=== PATIENT | male | born 1955 | race African-American/Black ===

== ENCOUNTER 2019-01-16 10:59 | Emergency (ER) | payer MEDICAID ==
[~2019-01-16] VITALS: Ht 167.6 cm; Wt 77.3 kg
[~2019-01-16 10:59] MED LIST: ALLEGRA ALLERG180 MG PO; ASCORBIC ACID500 MG PO; CALCIUM 600+D T1 TA1 PO; CELEXA10 MG PO; DEPAKOTE500 MG PO; DILANTIN100 MG PO; INVANZ 1 GM/NS 11 G1 IV; K-DUR20 MEQ PO; MELATONIN 3 MG1 TAB PO; MULTI-DAY VITAM1 TAB PO; NORCO 5/325 TAB1 TA1 PO; PRAVACHOL20 MG PO; VANCOMYCIN 750750 MG IV; VENTOLIN HFA18 GM INH; VITAMIN D2000 UNIT PO
[2019-01-16 11:01] VITALS: Ht 167.6 cm; Wt 77.3 kg
[2019-01-16 14:08] LABS: BASOPHILS 0.1 % (0-2); EOSINOPHILS 0.9 % (0-7); HEMATOCRIT 40.7 % (42.0-54.0); HEMOGLOBIN 13.3 g/dL (13.5-17.5); IMMATURE GRANULOCYTES 0.1 % (0-5); LYMPHOCYTES 44.7 % (15-50); MCHC 32.7 g/dL (31.0-37.0); MCV 104.1 fL (80.0-100.0); MEAN PLATELET VOLUME 10.6 fL (7.4-10.4); MONOCYTES 16.6 % (2-11); NEUTROPHILS 37.6 % (40-80); RBC 3.91 10x6/uL (4.20-6.10); RDW 14.2 % (11.5-14.5); WBC 7.9 10x3/uL (4.8-10.8)
[2019-01-16 14:19] LABS: PLATELET COUNT 228 10x3/uL (130-400)
[2019-01-16 14:31] LABS: ALBUMIN 2.7 g/dL (3.4-5.0); ALKALINE PHOSPHATASE 89 U/L (46-116); ALT (SGPT) 25 U/L (10-68); BILIRUBIN - TOTAL 0.18 mg/dL (0.2-1.3); CALC OSMOLALITY 279 mosm/kg (275-300); CALCIUM 8.8 mg/dL (8.5-10.1); CARBON DIOXIDE 32.1 mmol/L (21.0-32.0); CHLORIDE - SERUM 105 mmol/L (98-107); CREATININE - SERUM 1.5 mg/dL (0.6-1.3); GLUCOSE 83 mg/dL (74-106); POTASSIUM - SERUM 4.7 mmol/L (3.5-5.1); PROTEIN - SERUM 8.6 g/dL (6.4-8.2); SODIUM 140 mmol/L (136-145); UREA NITROGEN 19 mg/dL (7-18); eGFR NON AFRICAN AMERICAN 51 mL/min (90-120)
[2019-01-16 14:41] LABS: LIPASE 302 U/L (73-393); MAGNESIUM - SERUM 2.1 mg/dL (1.8-2.4); THYROID STIMULATING HORMONE 5.31 uIU/mL (0.36-3.74); TROPONIN-I < 0.017 ng/mL (0.000-0.060)
[2019-01-16 15:07] LABS: APPEARANCE TURBID (CLEAR); BILIRUBIN NEGATIVE (NEGATIVE); COLOR YELLOW (YELLOW); GLUCOSE NEGATIVE (NEGATIVE); KETONE NEGATIVE (NEGATIVE); NITRITE NEGATIVE (NEGATIVE); PROTEIN NEGATIVE (NEGATIVE); SPECIFIC GRAVITY 1.005 (1.005-1.020); UROBILINOGEN NORMAL (NORMAL)
[2019-01-16 15:09] LABS: BACTERIA MANY /hpf (NONE SEEN); RED CELLS - URINE OCC /hpf (0-5); WHITE CELLS - URINE 0-5 /hpf (0-5)
[2019-01-16 17:02] VITALS: BP 120/70
== END 2019-01-16 17:04 ==
LOC: D.ER 10:59
PROVIDERS: Family Medicine
DX: Z86.73 Personal history of transient ischemic attack (TIA), and cerebral infarction without residual deficits (principal); R45.4 Irritability and anger; Z93.3 Colostomy status; Q05.9 Spina bifida, unspecified

== ENCOUNTER 2019-03-30 08:24 | Emergency (ER) | payer MEDICAID ==
[~2019-03-30] VITALS: Ht 167.6 cm; Wt 95.5 kg
[2019-03-30 08:39] VITALS: Ht 167.6 cm; Wt 95.5 kg
[2019-03-30 09:25] LABS: BASOPHILS 0.1 % (0-2); EOSINOPHILS 1.5 % (0-7); HEMATOCRIT 41.1 % (42.0-54.0); HEMOGLOBIN 13.4 g/dL (13.5-17.5); IMMATURE GRANULOCYTES 0.6 % (0-5); LYMPHOCYTES 30.3 % (15-50); MCH 33.8 pg (26.0-34.0); MCHC 32.6 g/dL (31.0-37.0); MCV 103.8 fL (80.0-100.0); MEAN PLATELET VOLUME 10.6 fL (7.4-10.4); MONOCYTES 12.6 % (2-11); NEUTROPHILS 54.9 % (40-80); PLATELET COUNT 271 10x3/uL (130-400); RBC 3.96 10x6/uL (4.20-6.10); RDW 15.1 % (11.5-14.5); WBC 9.1 10x3/uL (4.8-10.8)
[2019-03-30 09:33] LABS: APTT 36.5 SECONDS (22.8-39.4); INR 0.97 (0.85-1.17); PROTIME 12.4 SECONDS (11.6-15.0)
[2019-03-30 10:43] LABS: ALBUMIN 2.7 g/dL (3.4-5.0); ALKALINE PHOSPHATASE 60 U/L (46-116); ALT (SGPT) 17 U/L (10-68); BILIRUBIN - TOTAL 0.37 mg/dL (0.2-1.3); CALC OSMOLALITY 280 mosm/kg (275-300); CALCIUM 8.2 mg/dL (8.5-10.1); CARBON DIOXIDE 30.5 mmol/L (21.0-32.0); CHLORIDE - SERUM 103 mmol/L (98-107); CREATININE - SERUM 1.4 mg/dL (0.6-1.3); GLUCOSE 94 mg/dL (74-106); PROTEIN - SERUM 8.6 g/dL (6.4-8.2); SODIUM 140 mmol/L (136-145); UREA NITROGEN 18 mg/dL (7-18); eGFR NON AFRICAN AMERICAN 55 mL/min (90-120)
[2019-03-30 10:44] LABS: POTASSIUM - SERUM 4.9 mmol/L (3.5-5.1)
[2019-03-30 10:55] LABS: CKMB 1.6 U/L (0.0-3.6); CREATINE KINASE 292 UL (21-232); TROPONIN-I < 0.017 ng/mL (0.000-0.060)
[2019-03-30 11:18] LABS: APPEARANCE CLEAR (CLEAR); BILIRUBIN NEGATIVE (NEGATIVE); COLOR STRAW (YELLOW); GLUCOSE NEGATIVE (NEGATIVE); KETONE NEGATIVE (NEGATIVE); NITRITE POSITIVE (NEGATIVE); PROTEIN NEGATIVE (NEGATIVE); UROBILINOGEN NORMAL (NORMAL)
[2019-03-30 11:20] LABS: BACTERIA FEW /hpf (NEGATIVE); EPITHELIAL CELLS NSEEN /hpf (0-5); RED CELLS - URINE NONE SEEN /hpf (0-5); WHITE CELLS - URINE 0-5 /hpf (NEGATIVE)
[2019-03-30] MEDS ORDERED: KEFLEX500 MG PO (12:03)
[2019-03-30] MEDS ORDERED: MACROBID100 MG PO (12:03)
[2019-03-30 15:26] VITALS: BP 119/80
== END 2019-03-30 15:28 | disposition home or self-care (01) ==
LOC: D.ER 08:24
PROVIDERS: Family Medicine
DX: M54.5 Low back pain (principal); N39.0 Urinary tract infection, site not specified

== ENCOUNTER 2020-01-06 08:57 | Inpatient (IN) | payer MEDICAID ==
[~2020-01-06] VITALS: Ht 167.6 cm; Wt 82.9 kg
[2020-01-06] VITALS (52 sets, daily range): BP systolic 75–141; BP diastolic 36–97
--- NOTE | ~2020-01-06 | OP ---
PATIENT NAME: CHITO MARINELLI MEDICAL RECORD: [id number] :59 LOCATION:D.M2 D.2103 ADMISSION DATE:01/06/20 SURGEON: CARLOS CHESTER MD DATE OF OPERATION: 01/18/2020 SURGEON: Carlos Chester MD ANESTHESIA: MAC by Chandrakant Randhawa CRNA FINDINGS: 1. Retained left ureteral stent within an ileal conduit. 2. Heavily calcified stent with stone formation on the distal coil. PROCEDURE: Cystoscopy into an ileal conduit, removal of left ureteral stent, dilation of stomal stenosis. SPECIMENS: Left ureteral stent. OPERATIVE DIAGNOSES: 1. Retained left ureteral stent with left pyelonephritis and renal atrophy. 2. Spina bifida with previous ileal conduit urinary diversion. ESTIMATED BLOOD LOSS: None. CLINICAL HISTORY: This is a 64-year-old male, who is nonverbal. He has spina bifida. He has had a previous ileal conduit and urinary diversion. A left ureteral stent has been placed with the duration of stenting being unknown. He comes in with sepsis and he has gram-positive bacteria in his blood stream on culture. He comes to have this retained foreign body, which is undoubtedly infected, removed. He is already on antibiotics on the floor. No further antibiotics were given here. DESCRIPTION OF PROCEDURE: The patient was placed on the OR table in supine position. He was given IV sedation. Fluoroscopy revealed the course of the stent with a large coil, which is calcified within the ileal conduit itself and the stent migrating across the body to the left side where it coiled up in the left renal pelvis. The stoma appliance was removed and the patient was prepped and draped. There is quite significant stomal stenosis. I used a finger in the stoma and gently dilated the skin overlying the stoma to open up the stoma. I was unable to place a 21-Barbadian cystoscope with 30-degree lens for vision. I was able to find the distal end of the stent, which was heavily calcified with stone material on it. Rigid grasping forceps was then used to grasp the relatively clear part of the stent proximal to the stone. The stent was then removed entirely. A new stoma appliance was placed on the patient. The stent was sent to pathology for identification. TRANSINT:[id number] Voice Confirmation ID: [id number] DOCUMENT ID: [id number] OPERATIVE REPORT [id number] CHITO MARINELLI CARLOS CHESTER MD CC: [id number] DICTATION DATE: 01/18/20 1706 LAUNDRY SUPERVISOR: 01/19/20 0239 ADM IN [facility] [address] [id number]
[~2020-01-06 08:57] MED LIST changes: +KEFLEX500 MG PO; +MACROBID100 MG PO
[2020-01-06 09:37] LABS: HEMATOCRIT 32.1 % (42.0-54.0); HEMOGLOBIN 10.1 g/dL (13.5-17.5); LYMPHOCYTES 10.8 % (15-50); MCH 30.4 pg (26.0-34.0); MCHC 31.5 g/dL (31.0-37.0); MCV 96.7 fL (80.0-100.0); MEAN PLATELET VOLUME 9.4 fL (7.4-10.4); PLATELET COUNT 280 10x3/uL (130-400); RBC 3.32 10x6/uL (4.20-6.10); RDW 15.7 % (11.5-14.5); WBC 13.3 10x3/uL (4.8-10.8)
[2020-01-06 09:53] LABS: CALC OSMOLALITY 276 mosm/kg (275-300); CALCIUM 8.6 mg/dL (8.5-10.1); CARBON DIOXIDE 18.7 mmol/L (21.0-32.0); CHLORIDE - SERUM 100 mmol/L (98-107); CREATININE - SERUM 4.2 mg/dL (0.6-1.3); GLUCOSE 119 mg/dL (74-106); INR 1.34 (0.85-1.17); POTASSIUM - SERUM 5.1 mmol/L (3.5-5.1); PROTIME 16.5 SECONDS (11.6-15.0); SODIUM 134 mmol/L (136-145); UREA NITROGEN 34 mg/dL (7-18); eGFR NON AFRICAN AMERICAN 15 mL/min (90-120)
[2020-01-06 09:54] LABS: APTT 52.1 SECONDS (22.8-39.4)
[2020-01-06 10:10] LABS: ALBUMIN 1.6 g/dL (3.4-5.0); ALKALINE PHOSPHATASE 75 U/L (30-120); ALT (SGPT) 7 U/L (10-68); BILIRUBIN - TOTAL 0.69 mg/dL (0.2-1.3); CKMB 0.2 U/L (0.0-3.6); CREATINE KINASE 113 UL (21-232); PROTEIN - SERUM 9.4 g/dL (6.4-8.2); TROPONIN-I 0.035 ng/mL (0.000-0.060)
--- NOTE | 2020-01-06 10:30 | NUR ---
PT SLEEPING ON BED. TEMP IS DECREASED AT THIS TIME.
--- NOTE | 2020-01-06 12:00 | NUR ---
WILLIS KAM'D AT THIS TIME D/T PT UROSTOMY BEING PRESENT
--- NOTE | 2020-01-06 12:01 | NUR ---
URINE SPECIMEN TAKEN TO LAB
[2020-01-06 12:09] LABS: BILIRUBIN NEGATIVE (NEGATIVE); GLUCOSE NEGATIVE (NEGATIVE); KETONE NEGATIVE (NEGATIVE); NITRITE POSITIVE (NEGATIVE); UROBILINOGEN NORMAL (NORMAL)
[2020-01-06 12:16] LABS: BACTERIA MANY /hpf (NEGATIVE); EPITHELIAL CELLS 0-5 /hpf (0-5); RED CELLS - URINE 0-5 /hpf (0-5)
[2020-01-06] MEDS ORDERED: LIPITOR10 MG PO (13:24)
[2020-01-06] MEDS ORDERED: CYMBALTA30 MG PO ×2 (13:24→13:25)
[2020-01-06] MEDS ORDERED: DEPAKOTE250 MG PO (13:30)
[2020-01-06] MEDS ORDERED: FISH OIL 1,0001 CA1 PO (13:31)
[2020-01-06] MEDS ORDERED: ELIQUIS5 MG PO (13:31)
[2020-01-06] MEDS ORDERED: GABAPENTIN100 MG PO (13:32)
[2020-01-06] MEDS ORDERED: GUAIFENESI100 MG/5 M PO (13:34)
[2020-01-06] MEDS ORDERED: ADVIL200 MG PO (13:35)
[2020-01-06] MEDS ORDERED: FUROSEMIDE20 MG PO (13:35)
[2020-01-06] MEDS ORDERED: MELATONIN 3 MG1 TAB PO (13:36)
[2020-01-06] MEDS ORDERED: K-TAB10 MEQ PO (13:37)
[2020-01-06] MEDS ORDERED: MULTI-DAY VITAM1 TAB PO (13:37)
--- NOTE | 2020-01-06 13:37 | NUR ---
ATTEMPTED TO CONTACT PTS BROTHER AND SISTER USING EMERGENCY CONTACT NUMBERS FOUND ON HIS PAPERWORK FROM THE ALF, THE NUMBER LISTED FOR HIS SISTER ([phone]) STATED IT WAS A NONFUNCIONING NUMBER, AND THE OTHER NUMBER FOR THE BROTHER ([phone]) HAD AN INDIVIUAL WHO ANSWERED STATED I HAD THE WRONG NUMBER. WAS ABLE TO GET AHOLD OF PTS COUSIN, MITESH REDMOND. UPDATES PROVIDED. CONSENTS RECIEVED FOR CVL PLACEMENT. PTS COUSIN STATED WILL CALL LATER FOR UPDATES AND SHE SAID SHE WILL ATTEMPT TO CONTACT PTS SISTER WHO IS TYPICALLY VERY DIFFICULT TO GET AHOLD OF PER PTS COUSIN. WILL CONTINUE PLAN OF CARE.
[2020-01-06] MEDS ORDERED: PROMOD LIQUID P30 M1 PO (13:38)
[2020-01-06] MEDS ORDERED: OMEPRAZOLE20 M1 PO (13:38)
[2020-01-06] MEDS ORDERED: PROVERA10 MG PO (13:39)
[2020-01-06] MEDS ORDERED: RISPERDAL1 MG PO (13:40)
[2020-01-06] MEDS ORDERED: VITAMIN C500 M1 PO (13:41)
[2020-01-06] MEDS ORDERED: TRAZODONE HCL150 MG PO (13:41)
[2020-01-06] MEDS ORDERED: VITAMIN D1000 UNIT PO (13:42)
--- NOTE | 2020-01-06 13:52 | NUR ---
RECIEVED CALL FROM PTS SISTER, JAUN. UPDATES PROVIDED. EMERGENCY CONTACT INFORMATION UPDATED. VSS. WILL CONTINUE PLAN OF CARE.
[2020-01-06 18:07] LABS: BILIRUBIN - TOTAL 0.25 mg/dL (0.2-1.3); CARBON DIOXIDE 19.4 mmol/L (21.0-32.0)
--- NOTE | 2020-01-06 18:07 | NUR ---
1230 PT RECIEVED FROM THE ED VIA STRECHER. TRANSFERED TO ICU BED.. PT IS OBTUNDED AT THIS TIME.. PIV X 2 RIGHT FOREARM AND LEFT WRIST... 1300 COMPLETE BATH WITH LINEN CHANGE DONE.. THERE IS AN ILLEOSTOMY ON THE RIGHT NEW BAG APPLIED.. URINE IS CLOUDY YELLOW.. THERE IS ACOLOSTOMY BAG ON THE LEFT WITH FAIR YELLOW STOOL IN THE BAG NEW BAG APPLIED AT THIS TIME. . CHG BATH GIVEN AND WHEN PATIENT TURNED TO CHANGE LINENS THERE ARE DRESSINGS ON HIS BUTTOCKS WHEN REMOVED THERE IS A [id number] UNSTAGEABLE DECUD ON HIS RIGHT BUTTOCK AND A 9 X 16 CM DECUBE ON THE LEFT BOTH WITH ESCHCAR AND APPEAR TO BE TUNNELING,, DRESSED WITH MEPLIX DRESSING .. BILATERAL HEELS ARE ALSO EXAMINED AND THERE IS DRY ROUGH SKIN WITH DEEP FISSURES.. THERE IS ALSO A SPINA BIFFADA CREASE IN LOW BACK WITH VERY DEEP FISSURE MOIST.. .. A SMELL IS EMITTING FROM ALL AREAS.. A CULTURE IS OBTSAINED OF AREAS BEFORE REDRESSING THEM... 1345 DR HICKS IN TO SEE PATIENT UPDATE IS GIVEN.. 1420 DR GUAN IN TO SEE PATIENT AND CVL PLACED
--- NOTE | 2020-01-06 18:18 | NUR ---
1500 CXR DONE FOR LINE PLACEMENT.. LEVOPHED INTIATED FOR BP.. DR GUAN EXAMINED PTS BUTTOCKS PER CONSULT RECIEVED FROM DR HICKS,, 1515 LAB DRAWN.. 1600 CONTINUE TO TITRATE LEVPHED FOR BP,, 1620 DR GREEN IN TO SEE PATIENT.. UPDATE GIVEN.. [address]SP[address] VIA BED [facility] EDUCATOR AND NURSE [address] 1800 WITHOUT CHANGES..CONTINUE WITH LEVOPHED DRIP AT 8 MCG ...
[2020-01-06 18:25] LABS: ALBUMIN 1.4 g/dL (3.4-5.0); CALCIUM 7.6 mg/dL (8.5-10.1)
[2020-01-06 18:26] LABS: ANION GAP 19.5 mmol/L (8-16); POTASSIUM - SERUM 3.9 mmol/L (3.5-5.1)
[2020-01-07] VITALS (33 sets, daily range): BP systolic 80–133; BP diastolic 54–96; Ht 167.6 cm; Wt 82.9 kg
[2020-01-07 00:16] LABS: ALBUMIN 1.5 g/dL (3.4-5.0); BILIRUBIN - TOTAL 0.33 mg/dL (0.2-1.3); CALCIUM 7.9 mg/dL (8.5-10.1); CREATININE - SERUM 2.4 mg/dL (0.6-1.3); PROTEIN - SERUM 7.4 g/dL (6.4-8.2)
[2020-01-07 00:19] LABS: ANION GAP 16.8 mmol/L (8-16); CARBON DIOXIDE 24.7 mmol/L (21.0-32.0); POTASSIUM - SERUM 4.5 mmol/L (3.5-5.1)
[2020-01-07 03:49] LABS: HEMATOCRIT 26.4 % (42.0-54.0); HEMOGLOBIN 8.5 g/dL (13.5-17.5); LYMPHOCYTES 13.7 % (15-50); MCH 31.4 pg (26.0-34.0); MCHC 32.2 g/dL (31.0-37.0); MCV 97.4 fL (80.0-100.0); MEAN PLATELET VOLUME 9.1 fL (7.4-10.4); NEUTROPHILS 67.3 % (40-80); PLATELET COUNT 164 10x3/uL (130-400); RBC 2.71 10x6/uL (4.20-6.10); RDW 15.4 % (11.5-14.5); WBC 11.8 10x3/uL (4.8-10.8)
[2020-01-07 04:18] LABS: BILIRUBIN - TOTAL 0.39 mg/dL (0.2-1.3); CALCIUM 8.1 mg/dL (8.5-10.1); CARBON DIOXIDE 29.9 mmol/L (21.0-32.0); CREATININE - SERUM 2.1 mg/dL (0.6-1.3); MAGNESIUM - SERUM 1.7 mg/dL (1.8-2.4); PHOSPHOROUS 4.5 mg/dL (2.5-4.9); PRE-ALBUMIN 9.3 mg/dL (18.0-35.7); PROTEIN - SERUM 7.4 g/dL (6.4-8.2); VANCOMYCIN - RANDOM 11.5 ug/mL (10.0-20.0)
[2020-01-07 04:19] LABS: ALBUMIN 2.1 g/dL (3.4-5.0); ANION GAP 11.4 mmol/L (8-16); POTASSIUM - SERUM 3.3 mmol/L (3.5-5.1)
--- NOTE | 2020-01-07 08:19 | NUR ---
BICARB DRIP D/C'D PER PHYSICIAN'S ORDER.
--- NOTE | 2020-01-07 08:45 | NUR ---
O2 DECREASED TO 2 L/M PER RT. ORAL CARE PERFORMED. PERIPHERAL IV SITED SALINE LOCKED. ALL FLUIDS TO RIGHT IJ CVL.
--- NOTE | 2020-01-07 10:40 | NUR ---
DROPLET ISOLATION INITIATED PER LAB REPORT GRAM POSITIVE CLUSTERS IN BLOOD CULTURE. SPUTUM PENDING. LR AT 100 ML/HR
--- NOTE | 2020-01-07 16:30 | NUR ---
CHG BATH GIVEN. ILEOSTOMY LEAKING. REINFORCED WITH TAPE. SACRAL/BUTTOCK WOUND DRESSINGS CHANGED. CLEANSED WITH WOUND WASH, 4X4 AND TAPE APPLIED. DRAINING BROWN FOUL SMELLING FLUID. ORAL CARE DONE.
--- NOTE | 2020-01-07 17:10 | NUR ---
DR JAMES HERE. SISTER CONTACTED FOR CONSENT FOR EXICISIONAL DEBRIDEMENT OF SACRAL WOUNDS. WITNESSED BY Kristi HAIR RN. LEVOPHED WEANED OFF AT 1630. BP STABLE.
--- NOTE | 2020-01-07 17:25 | NUR ---
TO OR VIA BED. LR AT 100 ML/HR CONTINUES. PATIENT IS ALERT AND AWARE OF SURGICAL PROCEDURE.
--- NOTE | 2020-01-07 18:50 | NUR ---
BACK TO ROOM FROM OR VIA BED. AWAKE AND RESPONSIVE. O2 VIA SIMPLE MASK AT 6L/M. LR RESUMED AT 100ML/HR VIA RIGHT IJ CVL. VITAL SIGNS STABLE. TEMP 97.4. C/O FEELING COLD. WARM BLANKET APPLIES. ILEOSTOMY AND COLOSTOMY INTACT. WOUND VAC TO BILATERAL SACRAL WOUNDS. COVID TEST NEG.
[2020-01-08] VITALS (7 sets, daily range): BP systolic 92–114; BP diastolic 52–71
--- NOTE | 2020-01-08 07:30 | NUR ---
REPORT RECIEVED, SHIFT ASSESSMENT COMPLETE, PT IS CONFUSED LYING IN BED, ON 3L NC WITH 100% FIO2, ALL PPP, VSS, CALL LIGHT IN REACH
[2020-01-08 07:56] LABS: ALBUMIN 2.2 g/dL (3.4-5.0); ANION GAP 8.8 mmol/L (8-16); BILIRUBIN - TOTAL 0.43 mg/dL (0.2-1.3); CALCIUM 7.7 mg/dL (8.5-10.1); CARBON DIOXIDE 31.7 mmol/L (21.0-32.0); CREATININE - SERUM 1.1 mg/dL (0.6-1.3); POTASSIUM - SERUM 3.5 mmol/L (3.5-5.1); PROTEIN - SERUM 6.5 g/dL (6.4-8.2)
[2020-01-08 08:07] LABS: HEMATOCRIT 26.1 % (42.0-54.0); LYMPHOCYTES 18.7 % (15-50); MCH 30.5 pg (26.0-34.0); MCHC 30.7 g/dL (31.0-37.0); MCV 99.6 fL (80.0-100.0); MEAN PLATELET VOLUME 9.5 fL (7.4-10.4); NEUTROPHILS 68.7 % (40-80); PLATELET COUNT 139 10x3/uL (130-400); RBC 2.62 10x6/uL (4.20-6.10); RDW 15.6 % (11.5-14.5)
--- NOTE | 2020-01-08 08:19 | OP ---
PATIENT NAME: CHITO MARINELLI MEDICAL RECORD: [id number] :59 LOCATION:.[facility] D.2308 ADMISSION DATE:01/06/20 SURGEON: SABINO JAMES MD DATE OF OPERATION: 01/07/2020 PREOPERATIVE DIAGNOSES: 1. Septic shock. 2. Pneumonia. 3. Urinary tract infection. 4. Bilateral unstageable sacral decubitus ulcers. POSTOPERATIVE DIAGNOSES: 1. Septic shock. 2. Pneumonia. 3. Urinary tract infection. 4. Bilateral unstageable sacral decubitus ulcers. PROCEDURE PERFORMED: Excisional debridement of bilateral sacral decubitus ulcers, right side 9 x 8 x 4 cm, left side is 9 x 7 x 4 cm with application of negative pressure wound therapy greater than 50 square cm. ANESTHESIA: General. COMPLICATIONS: None. SPECIMENS: Necrotic sacral tissue. ESTIMATED BLOOD LOSS: Minimal. OPERATIVE COURSE: After consent was obtained, the patient was taken to the operating room. He was intubated via endotracheal intubation and placed in the prone position on the operating table. A timeout was taken to confirm the correct patient and procedure, excisional debridement was performed with electrocautery. The right side the area of total debridement was 9 x 8 x 4 cm with exposed bone, making this a stage IV sacral decubitus ulcer. Next, we turned our attention to the left side and debrided again with electrocautery, the total area of 9 x 7 x 4 cm with exposed bone. Hemostasis was obtained with electrocautery. A wound VAC was cut to size over both wounds and secured. It was connected to the VAC system with good seal at 125 mmHg. At the end of the case, all needle and instrument counts were correct. The patient was transferred back to the ICU in critical condition. TRANSINT:[id number] Voice Confirmation ID: [id number] DOCUMENT ID: [id number] SABINO JAMES MD at 0819 CC: [id number] DICTATION DATE: 01/07/201829 MATERIAL COMBINER: 01/08/20 0013 ADM IN [facility] [address] [id number]
--- NOTE | 2020-01-08 15:49 | NUR ---
RECEIVED VIA BED TO ROOM FROM ICU. ON 3L PER NASAL CANNULA. BILATERAL ARMS ARE SWOLLEN, PLACED ON BLANKETS TO HELP WITH SWELLING. UROSTOMY SEEN ON RIGHT SIDE CONNECTED TO PEDRO BEDSIDE DRAINAGE BAG. COLOSTOMY SEEN TO LEFT SIDE. BIALTERAL DRESSING SEEN TO FEET. FABRICIO BAKER NURSE FROM ICU TO CHANGE DRESSINGS AND DATE. RIGHT IJ CVL SEEN WITH DRY DRESSING WITH NS INFUSING AT 30 CC/HR. WOUND VAC SEEN TO COCCYX WITH CONTINOUS SUCTION AT 125 CC, NO LEAK NOTED. SALINE LOCKS NOTED TO RIGHT FA AND LEFT HAND.
--- NOTE | 2020-01-08 19:57 | NUR ---
REPORT RECEIVED AND ROUNDING COMPLETE. PATIENT LAYING BED IN HIGH FOWLERS POSITION. PATIENT IS WEARING NASAL CANNULA WITH O2 AT 3L. RIGHT CVL, RIGHT FORARM, LEFT HAND PIV. PIV LINES ARE SALINE LOCKED. CVL IS RUNNING FLUIDS. NO DISTRESS NOTED AND NO NEEDS VOICED AT THIS TIME. CALL LIGHT WIOTHIN REACH AND BED IN LOWEST LOCKED POSITION.
[2020-01-09 05:52] LABS: HEMATOCRIT 25.1 % (42.0-54.0); HEMOGLOBIN 7.6 g/dL (13.5-17.5); LYMPHOCYTES 33.5 % (15-50); MCH 30.5 pg (26.0-34.0); MCHC 30.3 g/dL (31.0-37.0); MCV 100.8 fL (80.0-100.0); MEAN PLATELET VOLUME 9.8 fL (7.4-10.4); NEUTROPHILS 53.8 % (40-80); PLATELET COUNT 133 10x3/uL (130-400); RBC 2.49 10x6/uL (4.20-6.10); RDW 15.7 % (11.5-14.5)
[2020-01-09 05:56] LABS: WBC 5.8 10x3/uL (4.8-10.8)
[2020-01-09 06:14] LABS: ANION GAP 8.2 mmol/L (8-16); CREATININE - SERUM 1.1 mg/dL (0.6-1.3); MAGNESIUM - SERUM 1.8 mg/dL (1.8-2.4); POTASSIUM - SERUM 3.2 mmol/L (3.5-5.1)
--- NOTE | 2020-01-09 07:28 | NUR ---
AM ROUNDING DONE LAYING ON BACK. RIGHT CVL IJ SEEN WITH LR INFUSING AT 30 CC/HR. ON 3L PER NC. RIGHT UROSTOMY SEEN TO PEDRO DRAINAGE BAG, LEFT COLOSTOMY SEEN. RIGHT FA WITH SALINE LOCK, LEFT HAND SALINE LOCK. BILATERAL FEET UP ON PILLOW WITH DRY, INTACT DRESSING. ON EP, K+ 3.2. WILL COVER PER PROTOCOL. WOUND VAC SEEN AT 125, NO AIR LEAK. WILL MONITOR
[2020-01-09 09:00] VITALS: BP 108/59
--- NOTE | 2020-01-09 09:27 | NUR ---
0849-06/30 BAGS OF IV POTASSIUM STARTED TO COVER FOR PROTOCOL.
--- NOTE | 2020-01-09 09:48 | NUR ---
2/4 IV POTASSIUM HUNG.
[2020-01-09 11:00] VITALS: BP 119/62
--- NOTE | 2020-01-09 13:03 | NUR ---
Nutrition Follow-up: Transfer from ICU. S/p excisional debridement of bilateral sacral decubitus ulcer. Nursing reports pt not eating well. Diet: Regular Wt: 175# (01/06) Labs noted: K+ 3.2, Ca 8.0 Meds noted: LR @ 30, Albumin, Protonix, electrolyte protocol -Encourage PO intake and honor food preferences within diet restrictions. -+Ensure with meals. -Need new wt; noted daily wts ordered. -RD following.
--- NOTE | 2020-01-09 14:02 | NUR ---
BILATERAL COCCYX WOUND DRESSINGS WITH WOUND VAC CHANGED PER PROTOCOL. ABLE TO SEAL IT. RIGHT UROSTOMY APPLIANCE CHANGED. LEFT COLOSTOMY APPLIANCE CHANGED. RIGHT CVL IJ CHANGED PER PROTOCOL. PATIENT TOLERATED WELL.
--- NOTE | 2020-01-09 14:34 | NUR ---
UNIT OF BLOOD INITIATED VIA CENTRAL LINE. VITALS CHARTED.
[2020-01-09 15:00] VITALS: BP 136/71
--- NOTE | 2020-01-09 15:31 | NUR ---
BLOOD STILL INFUSING WITHOUT PROBLEMS.
--- NOTE | 2020-01-09 16:51 | NUR ---
LAB HERE FOR MISSED POTASSIUM BLOOD DRAW. BLODD IS STILL INFUSING AT THIS TIME. I WILL CALL THEM PAST INFUSION.
--- NOTE | 2020-01-09 17:10 | NUR ---
BLOOD IS FINISHED. LAB CALLED FOR RE-DRAW OF POTASSIUM.
--- NOTE | 2020-01-09 18:37 | NUR ---
POTASSIUM REDRAW WITH RESULTS OF 3.8
[2020-01-09 20:00] VITALS: BP 136/64
--- NOTE | 2020-01-09 20:04 | NUR ---
REPORT RECEIVED AND ROUNDING COMPLETE. PATIENT LAYING IN BED IN HIGH FOWLERS, A&O, WEARING NASAL CANNULA WITH O2 AT 3L. RIGHT CVL RUNNING FLUIDS, RIGHT FOREARM AND LEFT HAND PIV SALINE LOCKED. PATIENT HAS A UROSTOMY AND A COLOSTOMY BOTH INTACT. PATIENT ALSO HAS A WOUND VAC THAT IS WORKING AND RUNNING 125. NO NEEDS, NO DISTRESS. CALL LIGHT WIHTIN REACH AND BED IN LOWEST LOCKED POSITION.
[2020-01-09 21:20] LABS: HEMOGLOBIN 8.8 g/dL (13.5-17.5)
--- NOTE | 2020-01-09 21:35 | NUR ---
WALKED IN TO PATIENT'S ROOM TO GIVE PM MEDICATIONS, THE PATIENT WAS COVERED IN BLOOD ON THE LEFT SIDE, CALLED A RAPID, ON FUTHER LOOK, PATIENT WAS BLEEDING FROM WOUND VAC AND COCCYX ULCERS, WOUND VAC BROKEN DOWN AND PRESSURE APPLIED. ERIKA NOTIFIED AND STATED TO APPLY PRESSURE DRESSING AND HE WILL ASSES FIRST THING IN THE MORNING AND REAPPLY WOUND VAC. PATIENT TOLERATED OKAY, HE IS LAYING ON HIS LEFT SIDE. RIGHT ULCER WOUND VAC IN PLACE, LEFT ULCER HAS PRESRE DRESSING IN PLACE. BED IN LOWEST LOCKED POSITION, BED ALARM ON AND CALL LIGHT WITHIN REACH.
[2020-01-10] VITALS: BP 133/68
[2020-01-10 04:00] VITALS: BP 157/80
[2020-01-10 06:19] LABS: CALC OSMOLALITY 282 mosm/kg (275-300); CALCIUM 8.5 mg/dL (8.5-10.1); CARBON DIOXIDE 31.7 mmol/L (21.0-32.0); CHLORIDE - SERUM 107 mmol/L (98-107); CREATININE - SERUM 0.9 mg/dL (0.6-1.3); GLUCOSE 93 mg/dL (74-106); MAGNESIUM - SERUM 1.6 mg/dL (1.8-2.4); POTASSIUM - SERUM 3.6 mmol/L (3.5-5.1); SODIUM 143 mmol/L (136-145); UREA NITROGEN 8 mg/dL (7-18); eGFR NON AFRICAN AMERICAN > 90 mL/min (90-120)
[2020-01-10 07:32] LABS: HEMATOCRIT 28.3 % (42.0-54.0); HEMOGLOBIN 8.8 g/dL (13.5-17.5); LYMPHOCYTES 23.2 % (15-50); MCH 30.9 pg (26.0-34.0); MCHC 31.1 g/dL (31.0-37.0); MCV 99.3 fL (80.0-100.0); MEAN PLATELET VOLUME 9.5 fL (7.4-10.4); NEUTROPHILS 65.9 % (40-80); RBC 2.85 10x6/uL (4.20-6.10); RDW 15.8 % (11.5-14.5)
[2020-01-10 07:35] LABS: PLATELET COUNT 176 10x3/uL (130-400); WBC 8.7 10x3/uL (4.8-10.8)
[2020-01-10 08:30] VITALS: BP 164/72
--- NOTE | 2020-01-10 09:11 | NUR ---
ROUNDED WITH DR. JAMES IN PT'S ROOM. HE PULLED PRESSURE DRESSING FROM PT'S LEFT BUTTOCK. HE STATES IT IS NO LONGER BLEEDING. HE STATES TO LEAVE DRY DRESSING OVERNIGHT AND TO PLACE WOUND VAC BACK TOMORROW. I VERBALIZED UNDERSTANDING. DR. JAMES PLACED 4X4 AND TAPE ON LEFT BUTTOCK.
--- NOTE | 2020-01-10 11:30 | NUR ---
BILATERAL HEEL DRESSING REMOVED. CLEANSED WITH WOUND CLEANSER AND 4X4'S PATTED DRY WITH 4X4'S COVERED WITH ADAPTIC AND WRAPPED WITH KERLIX. UROSTOMY AND COLOSTOMY BAG LEAKING. CHANGED BOTH BAGS AND URINE COLLECTED FROM UROSTOMY SITE. UROSTOMY STILL CONTINUEING TO LEAK. LEFT BAG AND PADDED AND TAPE ADDED TO AROUND BAG.
[2020-01-10 14:53] LABS: BACTERIA MODERATE /hpf (NEGATIVE); BILIRUBIN NEGATIVE (NEGATIVE); EPITHELIAL CELLS NSEEN /hpf (0-5); GLUCOSE NEGATIVE (NEGATIVE); KETONE NEGATIVE (NEGATIVE); NITRITE NEGATIVE (NEGATIVE); UROBILINOGEN NORMAL (NORMAL); WHITE CELLS - URINE >50 /hpf (NEGATIVE)
--- NOTE | 2020-01-10 18:23 | NUR ---
I have reviewed this patient and I concur with the Shift Assessment completed by the Licensed Practical Nurse today this shift.
--- NOTE | 2020-01-10 19:05 | NUR ---
PT AROUSES EASILY AND HAD COMUNICATION PT ASKED FOR AND RECIEVED WATER TO DRINK AND DENIED OTHER NEEDS. IV AND WOUND VAC WNL BED LOW AND LOCKED AND PT UNABLE TO USE ANY CALL LIGHT I WILL MAKE FREQUENT VISITS TO DOOR AND BEDSIDE
[2020-01-10 20:00] VITALS: BP 155/81
--- NOTE | 2020-01-10 20:05 | NUR ---
RESTING WITH EYES CLOSED RES EVEN AND UNLABORED
--- NOTE | 2020-01-10 21:46 | NUR ---
PT OFFERED WATER NO OTHER NEEDS AT THIS TIME
--- NOTE | 2020-01-10 23:00 | NUR ---
I CONTINUE TO CHECK ON PT RESTING NOW WITH EYES CLOSED
[2020-01-11] VITALS: BP 146/88
--- NOTE | 2020-01-11 00:10 | NUR ---
PT AT REST EASILY AROUSES OSTOMIES ARE INTACT
--- NOTE | 2020-01-11 03:06 | NUR ---
I have reviewed this patient and I concur with the Shift Assessment completed by the Licensed Practical Nurse today this shift.
[2020-01-11 04:00] VITALS: BP 145/76
[2020-01-11 05:04] LABS: HEMATOCRIT 27.3 % (42.0-54.0); HEMOGLOBIN 8.8 g/dL (13.5-17.5); LYMPHOCYTES 20.9 % (15-50); MCH 31.7 pg (26.0-34.0); MCHC 32.2 g/dL (31.0-37.0); MCV 98.2 fL (80.0-100.0); MEAN PLATELET VOLUME 9.3 fL (7.4-10.4); PLATELET COUNT 203 10x3/uL (130-400); RBC 2.78 10x6/uL (4.20-6.10); RDW 15.5 % (11.5-14.5)
[2020-01-11 05:05] LABS: WBC 12.8 10x3/uL (4.8-10.8)
[2020-01-11 05:13] LABS: CALC OSMOLALITY 282 mosm/kg (275-300); CALCIUM 8.3 mg/dL (8.5-10.1); CHLORIDE - SERUM 104 mmol/L (98-107); GLUCOSE 111 mg/dL (74-106); MAGNESIUM - SERUM 1.6 mg/dL (1.8-2.4); POTASSIUM - SERUM 3.5 mmol/L (3.5-5.1); SODIUM 142 mmol/L (136-145); UREA NITROGEN 9 mg/dL (7-18); eGFR NON AFRICAN AMERICAN 80 mL/min (90-120)
[2020-01-11 08:00] VITALS: BP 147/79
--- NOTE | 2020-01-11 09:45 | NUR ---
UROSTOMY BAG AND COLOSTOMY BAG LEAKING PT GIVEN BED BATH AND CHANGED URSTOMY AND COLOSTOMY BAG.
--- NOTE | 2020-01-11 13:18 | NUR ---
Nutrition Follow-up: Diet: Regular + Ensure TID PO intake: ~7% average x last 5 meals; patient was being positioned by nursing at time of RD visit. Last BM: ostomy output 60mL (01/10/20). Wt: 175# (01/07/20) Meds noted: LR@30mL/hr, SSI, vanc Labs noted: Glu 111(H), Mag 1.6(L), Ca 8.3(L) Skin: Deep tissue PU to left and right buttocks, wound vacs Recommend continue current diet. Encourage PO intake. Continue with nursing staff feeding patient at meal times. If PO intake remains poor patient may need PEG placement for long-term nutrition. RD following.
--- NOTE | 2020-01-11 15:00 | NUR ---
LT BUTTOCK WOUND VAC PLACED AND RT BUTTOCK WOUND VAC CHANGED. PT TOLERATED WELL.
--- NOTE | 2020-01-11 16:15 | NUR ---
I have reviewed this patient and I concur with the Shift Assessment completed by the Licensed Practical Nurse today this shift.
--- NOTE | 2020-01-11 17:06 | MORECARE ---
CASE MANAGEMENT DISCHARGE SUMMARY PATIENT: CHITO MARINELLI UNIT: [id number] ADM DATE: 01/06/20 AGE: 64 : 59 SEX: M ROOM/BED: D.210 AUTHOR: JEFFREY MARTINEZ PHYSICIAN: REFERRING PHYSICIAN: PATRICIA SAMANIEGO MD DATE OF SERVICE: 01/11/20 Discharge Plan Patient Name: CHITO MARINELLI [facility] [facility] 1955 Planned Disposition: Anticipated Discharge Date: Discharge Date: Expected LOS: Initial Reviewer: [email or web address] Initial Review Date: 01/06/2020 Generated: 01/11/20 6:05 pm Comments DCP- Discharge Planning Updated by [email or web address]: Maren Mcclure on 01/11/20 9:[address] CM met with patient to discuss initial discharge planning. Patient is in agreement to proceed with the assessment. Patient reports that he lives at [facility] in a LT bed. Patient is alert/oriented. Stairs/steps: 0 PCP: Dr. Carlton. Pharmacy: [facility]. DME: DC provides. Emergency contact:: Ana Lance (cousin) [phone].. Patient is in agreement to returning to the [facility] at this time and feels safe returning to previous environment. Patient denies hospitalization within the past 30 days. Patient denies the use of community resources [address]. Transportation at time of discharge: [facility]. Patient Name: CHITO MARINELLI Page [phone] at 1706 All edits/amendments must be made on the electronic document DICTATION DATE: 01/11/201705 ACID BLOWER: GUSTAVO 01/11/201705 RPT#: [id number] DC DATE: STATUS: ADM IN [facility] [address] [place] [address] END OF REPORT
--- NOTE | 2020-01-11 20:00 | NUR ---
PATIENT IS RESTING COMFORTABLY IN BED. HE IS HARD TO AROUSE. HE HAS COLOSTOMY AND UROSTOMY. HE IS ON 4 LITERS NASAL CANULA. HE HAS IV FLUIDS GOING TO A CENTRAL LINE.
[2020-01-11 20:04] VITALS: BP 91/50
[2020-01-12] VITALS (9 sets, daily range): BP systolic 93–115; BP diastolic 47–64
--- NOTE | 2020-01-12 04:51 | NUR ---
PATIENTT IS HARD TO AROUSE. HE ONLY VOIDED 100 ML OF URINE. I INCREASED HIS LATATED RINGERS AT 0400 TO 30 ML AN HOUR. HOPEFULLY HE VOIDS MORE.
[2020-01-12 06:45] LABS: ANION GAP 9.3 mmol/L (8-16); CALCIUM 8.6 mg/dL (8.5-10.1); CARBON DIOXIDE 32.5 mmol/L (21.0-32.0); MAGNESIUM - SERUM 1.7 mg/dL (1.8-2.4); POTASSIUM - SERUM 3.8 mmol/L (3.5-5.1)
[2020-01-12 06:46] LABS: CREATININE - SERUM 1.4 mg/dL (0.6-1.3)
[2020-01-12 06:58] LABS: HEMATOCRIT 22.9 % (42.0-54.0); MCH 30.7 pg (26.0-34.0); MCHC 30.6 g/dL (31.0-37.0); MCV 100.4 fL (80.0-100.0); PLATELET COUNT 206 10x3/uL (130-400); RBC 2.28 10x6/uL (4.20-6.10); RDW 16.5 % (11.5-14.5)
[2020-01-12 09:01] LABS: EOSINOPHILS 2 % (0-7); LYMPHOCYTES 28 % (15-50); MONOCYTES 3 % (2-11); NEUTROPHILS 65 % (40-80); PLATELET ESTIMATE NORMAL
--- NOTE | 2020-01-12 09:29 | NUR ---
VS STABLE. LOW GRADE TEMP 99.4. 1 UNIT OF PRBC STARTED BY RUDY REGALADO THROUGH RT IJ CVL. THIS NURSE WILL STAY WITH PT FOR THE FIRST 15 MINUTES TO MONITOR. PT TEAVHING DONE ABOUT PRBC REACTION AND WHAT TO REPORT. PT VERBALIZED UNDERSTANDING.
--- NOTE | 2020-01-12 09:35 | NUR ---
SPOKE WITH DR. LOPEZ ABOUT BLOOD CULTURES AND WOUND CULTURES AND NEEDING A DIFFERENT ABX. HE STATES HER WILL ORDER SOMETHING ELSE ALONG WITH VANC. I ALSO STATED PT RAN A 100.2 TEMP LAST NIGTH AND HAS A 99.4 LOW GRADE TEMP CURRENTLY AND ASKED IF HE COULD ORDER TYLENOL. HE STATES HE WOULD ORDER SOME. I VERBALIZED UNDERSTANDING.
--- NOTE | 2020-01-12 09:44 | NUR ---
PT SHOWS NO S/S OF PRBC REACTION. INCREASED PRBC FROM 100ML/HR TO 125ML/HR. VS STABLE. WILL CONTINUE TO MONITOR.
--- NOTE | 2020-01-12 11:37 | NUR ---
LAB STATES THEY CAN NOT DRAW VANC TROUGH UNTIL BLOOD IS FINISHED INFUSING. AND THEN AFTER BLOOD IS FINISHED INFSING WE HAVE TO WAIT 1 HR BEFORE DRAWING. I VERBALIZED UNDERSTANDING. CLALED KINGS AND SPOKE WITH REMIGIO PHARMACIST AND SHE STATES TO HOLD DOSE TODAY AND PT CAN GET DOSE TOMORROW. I VEBRALIZED UNDERSTANDING.
--- NOTE | 2020-01-12 12:58 | NUR ---
PRBC DONE INFUSING. PT HAS NO S/S OF PRBC REACTION. VS STBALE. WILL CONTINUE TO MONITOR. PT ALERT AND ORIENTED. BED LOW. CL IN REACH.
--- NOTE | 2020-01-12 17:30 | NUR ---
BLOOD CULTURES DRAWN FROM CL. BLOOD CULTURE TUBE LEO UP IN HAZARD BAG. CALLED LAB AND THEY STATED THEY WILL BRING NEW BLOOD CULTURES TUBES. I VERBALIZED UNDERSTANDING.
--- NOTE | 2020-01-12 19:30 | NUR ---
RECEIVED REPORT, WILL ASSUME CARE OF PT, SLEEPING ON R.SIDE, NO DISTRESS NOTICED AT THIS TIME, BED IS LOW, SRX2, CALL LIGHT IN REACH, WILL CONTINUE PLAN OF CARE
--- NOTE | 2020-01-12 21:46 | NUR ---
REPOSTION TO L.SIDE
[2020-01-13] VITALS: BP 102/57
[2020-01-13 04:00] VITALS: BP 115/64
--- NOTE | 2020-01-13 04:03 | NUR ---
I have reviewed this patient and I concur with the Shift Assessment completed by the Licensed Practical Nurse today this shift.
[2020-01-13 05:24] LABS: BASOPHILS 0.1 % (0-2); EOSINOPHILS 2.5 % (0-7); HEMATOCRIT 27.1 % (42.0-54.0); HEMOGLOBIN 8.2 g/dL (13.5-17.5); IMMATURE GRANULOCYTES 0.3 % (0-5); LYMPHOCYTES 24.9 % (15-50); MCH 29.6 pg (26.0-34.0); MCHC 30.3 g/dL (31.0-37.0); MCV 97.8 fL (80.0-100.0); MEAN PLATELET VOLUME 10.1 fL (7.4-10.4); MONOCYTES 23.5 % (2-11); NEUTROPHILS 48.7 % (40-80); PLATELET COUNT 250 10x3/uL (130-400); RBC 2.77 10x6/uL (4.20-6.10); RDW 17.6 % (11.5-14.5); WBC 10.3 10x3/uL (4.8-10.8)
[2020-01-13 05:47] LABS: ANION GAP 7.8 mmol/L (8-16); CALCIUM 9.2 mg/dL (8.5-10.1); POTASSIUM - SERUM 3.8 mmol/L (3.5-5.1)
[2020-01-13 05:48] LABS: CREATININE - SERUM 1.8 mg/dL (0.6-1.3); MAGNESIUM - SERUM 2.3 mg/dL (1.8-2.4)
[2020-01-13 08:00] VITALS: BP 107/56
--- NOTE | 2020-01-13 08:47 | NUR ---
PT ALERT AND ORIENTED UPON ENTERING. ADMINISTERED MEDICATION, NO DIFFICULTIES. ASSISTED PT WITH EATING BREAKFAST. DENIES ANY OTHER NEEDS. BED IN LOWEST POSITION, BED RAILS X2, WILL CONTINUE TO MONITOR.
--- NOTE | 2020-01-13 10:33 | NUR ---
HUNG IV MEDICATION. PT RESTING IN BED WITH EYES CLOSED, BREATHING EVEN AND UNLABORED. NO S/S OF DISTRESS NOTED AT THIS TIME. WILL CONTINUE TO MONITOR.
[2020-01-13 11:00] VITALS: BP 105/56
--- NOTE | 2020-01-13 12:13 | NUR ---
I have reviewed this patient and I concur with the Shift Assessment completed by the Licensed Practical Nurse today this shift.
--- NOTE | 2020-01-13 13:37 | NUR ---
HUNG IV ABX, TOLERATING WELL. DENIES ANY NEEDS. RESTING COMFORTABLY IN BED. WILL CONTINUE TO MONITOR.
[2020-01-13 15:00] VITALS: BP 108/58
--- NOTE | 2020-01-13 17:52 | NUR ---
PT RESTING COMFORTABLY UPON ENTERING. NO INSULIN PER SLIDING SCALE, GLUCOSE READING OF 95. OFFERED PT ORANGE JUICE, ACCEPTED. DENIES ANY OTHER NEEDS. WILL CONTINUE TO MONITOR.
--- NOTE | 2020-01-13 19:29 | NUR ---
RECEIVED REPORT, WILL ASSUME CARE OF PT, DENIES ANY NEEDS AT THIS TIME, BED IS LOW, SRX2, ALARM IS ON, WILL CONTINUE PLAN OF CARE
--- NOTE | 2020-01-13 19:45 | NUR ---
WHEN CLEANING UP PT, WOUNDVAC WAS OFF, CLINTON REGALADO TRY TO ASSIST WITH REPLACING WAS UNABLE TO GET TO SEAL, SHE PLACED A WET TO DRY DRESSING TO BOTH WOUNDS, REPLACED UROSTOMY AND COLOSTOMY, PT DENIES ANY OTHER NEEDS AT THIS TIME, WILL CONTINUE PLAN OF CARE
[2020-01-13 20:00] VITALS: BP 133/61
[2020-01-14] VITALS: BP 128/59
[2020-01-14 04:00] VITALS: BP 140/59
--- NOTE | 2020-01-14 06:52 | NUR ---
I have reviewed this patient and I concur with the Shift Assessment completed by the Licensed Practical Nurse today this shift.
[2020-01-14 08:10] VITALS: BP 125/58
[2020-01-14 08:17] LABS: ALBUMIN 3.3 g/dL (3.4-5.0); ANION GAP 8.9 mmol/L (8-16); BILIRUBIN - TOTAL 0.57 mg/dL (0.2-1.3); CALCIUM 8.9 mg/dL (8.5-10.1); CARBON DIOXIDE 31.8 mmol/L (21.0-32.0); POTASSIUM - SERUM 3.7 mmol/L (3.5-5.1); PROTEIN - SERUM 6.7 g/dL (6.4-8.2)
[2020-01-14 08:44] LABS: HEMATOCRIT 24.7 % (42.0-54.0); HEMOGLOBIN 7.6 g/dL (13.5-17.5); MCH 30.5 pg (26.0-34.0); MCHC 30.8 g/dL (31.0-37.0); MCV 99.2 fL (80.0-100.0); MEAN PLATELET VOLUME 9.9 fL (7.4-10.4); PLATELET COUNT 279 10x3/uL (130-400); RBC 2.49 10x6/uL (4.20-6.10); WBC 9.1 10x3/uL (4.8-10.8)
--- NOTE | 2020-01-14 11:02 | NUR ---
NUTRITION F/U CHART REVIEWED, PT SLEEPING. NURSING REPORTS PT WITH CONTINUED POOR PO INTAKE. DID NOT EAT BREAKFAST THIS AM. WILL CONTINUE TO PROVIDE CURRENT DIET, MONITOR PT PO INTAKE. RD FOLLOWING
[2020-01-14 11:24] VITALS: BP 128/55
[2020-01-14 12:55] LABS: ANISOCYTOSIS OCC; EOSINOPHILS 1 % (0-7); LYMPHOCYTES 27 % (15-50); MONOCYTES 19 % (2-11); NEUTROPHILS 52 % (40-80); PLATELET ESTIMATE NORMAL
--- NOTE | 2020-01-14 14:29 | NUR ---
ATTEMPTED TO REPLACE WOUND VAC THAT WAS TAKEN OFF LAST NIGHT D/T BLEEDING AND WAS UNABLE TO REPLACE D/T CONTINUOUS TRICKLE OF BLOOD FROM BOTH ULCERS. SATURATED BOX OF 4X4S. PACKED WITH DRY 4X4S AND COVERED WITH ABD PADS AND TAPE. PAGED DR JAMES AND AWAITING CALL BACK. UROSTOMY CHANGED FOR LEAKING.
--- NOTE | 2020-01-14 14:54 | NUR ---
PAGED DR JAMES 2ND TIME CONCERNING BLEEDING TO BOTH BUTTOCK AND INABILITY TO STOP AND PLACE WOUND VAC. AWAITING CALL BACK.
--- NOTE | 2020-01-14 15:00 | NUR ---
REPORT RECEIVED, WILL CONTINUE POC. PATIENT IS AAOX3, SITTING UP IN BED. NO S/S OF DISTRESS, RR EVEN AND UNLABORED ON 4L O2 VIA NC. PATIENT IS BLEEDING ON HIS BUTTOCKS THROUGH HIS DRESSINGS. WAITING FOR CENTRAL SUPPLY TO BRING SURGICEL THAT DR. JAMES WANTS TO BE USED ON PATIENTS BUTTOCKS BEFORE PRESSURE DRESSING IS APPLIED. PATIENT DENIES NEEDS AT THIS TIME. CL IN REACH, BED LOCKED AND LOWERED. WILL CTM.
--- NOTE | 2020-01-14 15:00 | NUR ---
DR JAMES RETURNED CALL AND ORDERS RECEIVED TO CALL ICU AND GET SURGISEAL TO PLACE WITH PRESSURE DRESSING TO BOTH BUTTOCKS AND MONITOR FOR BLEEDING.
--- NOTE | 2020-01-14 15:50 | NUR ---
PRESSURE DRESSING APPLIED TO RIGHT BUTTOCK AND SURGICEL ORIGINAL AND FIBRILLAR APPLIED TO LEFT BUTTOCK WITH PRESSURE DRESSING. BED PADS AND GOWN CHANGED.
[2020-01-14 17:41] VITALS: BP 130/75
--- NOTE | 2020-01-14 19:30 | NUR ---
RECEIVED REPORT, WILL ASSUME CARE OF PT, INTERNAL RECRUITER IN ROOM, TELLS ME THERE IS BLOOD IN BED, CHECK PT IS BLEEDING FROM SORES ON BOTTOM, REPLACED PRESSURE DRESSING, AND DID LINEN CHANGE, ORDER A STAT H&H, WILL CONTINUE PLAN OF CARE
[2020-01-14 21:31] LABS: HEMATOCRIT 17.5 % (42.0-54.0); HEMOGLOBIN 5.3 g/dL (13.5-17.5)
[2020-01-14 21:47] VITALS: BP 86/52
--- NOTE | 2020-01-14 23:00 | NUR ---
CALL PIERCER UNARMED SECURITY GUARD AT 2144, [phone], [phone], NEVER HEARD BACK, PAGED ANSWERING SERVICE, WAS TOLD IT WAS BRYAN, THEY PAGED HIM, ANSWERING SERVICES CALLED ME BACK TO SEE IF HE HAD CALLED BACK, I SAID NO, THEY SAID THEY WOULD CALL YOLY,[id number] YOLY CALL BACK TOLD HER H&H WAS 5.3-17.5, WAS TOLD TO RECHECK H&H-5.2-17.0- WAS TOLD TO GIVE 2 UNIT OF PRBC, TYPE AND SCREEN HAD TO BE REDONE,
[2020-01-14 23:22] LABS: BASOPHILS 0.1 % (0-2); EOSINOPHILS 0.3 % (0-7); IMMATURE GRANULOCYTES 0.5 % (0-5); LYMPHOCYTES 23.3 % (15-50); MCH 30.2 pg (26.0-34.0); MCHC 30.6 g/dL (31.0-37.0); MCV 98.8 fL (80.0-100.0); MEAN PLATELET VOLUME 9.4 fL (7.4-10.4); MONOCYTES 18.6 % (2-11); NEUTROPHILS 57.2 % (40-80); PLATELET COUNT 281 10x3/uL (130-400)
[2020-01-14 23:43] LABS: WBC 14.1 10x3/uL (4.8-10.8)
[2020-01-14 23:44] LABS: HEMOGLOBIN 5.2 g/dL (13.5-17.5); RBC 1.72 10x6/uL (4.20-6.10)
[2020-01-15 00:30] VITALS: BP 131/62
--- NOTE | 2020-01-15 01:28 | NUR ---
KIERRA REGALADO STARTED 1ST UNIT OF PRBC
--- NOTE | 2020-01-15 02:32 | NUR ---
I have reviewed this patient and I concur with the Shift Assessment completed by the Licensed Practical Nurse today this shift.
[2020-01-15 04:00] VITALS: BP 112/59
--- NOTE | 2020-01-15 04:10 | NUR ---
KIERRA REGALADO STARTED 2ND UNIT PRBC
--- NOTE | 2020-01-15 07:33 | NUR ---
REPORT RECIEVED. PT SITTING SEMI FOWLERS. RR EVEN AND UNLABORED ON 4L NC. HE HAS A R IJ CVL INFUSING LR @ 50, A L HAND PIV AND A R FA PIV THAT ARE SL. HE HAS A UROSTOMY DRAINING URINE AND A CLOSTOMY FOR STOOL. BED LOCKED AND IN LOWEST POSITION, CALL LIGHT WITHIN REACH. WILL CTM
[2020-01-15 08:49] VITALS: BP 135/54
[2020-01-15 10:07] LABS: BASOPHILS 0.2 % (0-2); EOSINOPHILS 0.7 % (0-7); IMMATURE GRANULOCYTES 0.4 % (0-5); LYMPHOCYTES 19.7 % (15-50); MCH 29.7 pg (26.0-34.0); MCHC 32.2 g/dL (31.0-37.0); MEAN PLATELET VOLUME 10.1 fL (7.4-10.4); MONOCYTES 20.7 % (2-11); NEUTROPHILS 58.3 % (40-80); RDW 16.2 % (11.5-14.5); WBC 12.5 10x3/uL (4.8-10.8)
[2020-01-15 10:14] LABS: ANION GAP 7.9 mmol/L (8-16); CALCIUM 8.8 mg/dL (8.5-10.1); CARBON DIOXIDE 32.9 mmol/L (21.0-32.0); CREATININE - SERUM 2.2 mg/dL (0.6-1.3); POTASSIUM - SERUM 3.8 mmol/L (3.5-5.1)
[2020-01-15 10:21] LABS: HEMATOCRIT 24.2 % (42.0-54.0); HEMOGLOBIN 7.8 g/dL (13.5-17.5); PLATELET COUNT 200 10x3/uL (130-400); RBC 2.63 10x6/uL (4.20-6.10)
[2020-01-15 11:52] LABS: BILIRUBIN NEGATIVE (NEGATIVE); GLUCOSE NEGATIVE (NEGATIVE); KETONE NEGATIVE (NEGATIVE); NITRITE NEGATIVE (NEGATIVE); UROBILINOGEN NORMAL (NORMAL)
[2020-01-15 12:05] LABS: EPITHELIAL CELLS 0-5 /hpf (0-5)
[2020-01-15 12:06] LABS: BACTERIA MODERATE /hpf (NEGATIVE); YEAST >1+ WITH HYPHAE /hpf (NONE SEEN)
[2020-01-15 12:14] VITALS: BP 116/46
[2020-01-15 15:23] VITALS: BP 124/65
--- NOTE | 2020-01-15 16:50 | NUR ---
I have reviewed this patient and I concur with the Shift Assessment completed by the Licensed Practical Nurse today this shift.
--- NOTE | 2020-01-15 19:24 | OP ---
PATIENT NAME: CHITO MARINELLI MEDICAL RECORD: [id number] :59 LOCATION:D.M2 D.2103 ADMISSION DATE:01/06/20 SURGEON: CARLOS GUAN MD DATE OF OPERATION: 01/06/2020 PREOPERATIVE DIAGNOSES: 1. Septic shock. 2. Hypotension. 3. Mental status change. POSTOPERATIVE DIAGNOSES: 1. Septic shock. 2. Hypotension. 3. Mental status change. PROCEDURE: Insertion of right neck triple lumen central venous catheter. SURGEON: Carlos Guan MD TOURIST AGENT: None. BLOOD LOSS: Minimal. ANESTHESIA: Local. The entire procedure was performed in the ICU at the patient's bed. The entire procedure was performed in the presence of a nurse. The indication for the central venous line was the need for additional IV access due to multiple drips. Additional peripheral access is unobtainable. OPERATIVE COURSE: The patient was positioned in steep Trendelenburg position. The right neck was sterilely prepped and draped. The patient has a very stiff neck due to the fusion and also due to prolonged immobility. The right neck was sterilely prepped and draped. Local anesthetic was used to infiltrate the skin and subcutaneous tissues at the base of the right neck. I was unable to percutaneously access the right internal jugular vein in an antegrade fashion. I brought the sterile ultrasound on to the field, located an internal jugular vein which was much more medial than I would have expected. I percutaneously then accessed the internal jugular vein in an antegrade fashion. A guidewire passed easily. A small skin bea was accomplished. A vessel dilator was used to dilate a subcutaneous tract. A 16-cm triple lumen central venous catheter was inserted to the hub. It was sutured in place times 3. All lumens flushed easily and aspirated dark, nonpulsatile blood. A portable chest x-ray revealed adequate placement of the central venous line without pneumothorax. TRANSINT:[id number] Voice Confirmation ID: [id number] DOCUMENT ID: [id number] OPERATIVE REPORT [id number] CHITO MARINELLI ROBERT MD at 1924 CC: [id number] DICTATION DATE: 01/06/20 1602 SALES AND MARKETING ENGINEER: 01/06/20 2158 ADM IN [id number] [place] [address]
[2020-01-15 20:00] VITALS: BP 143/66
--- NOTE | 2020-01-15 22:43 | NUR ---
patient sitting in bed looking at tv, patient non verbal, refused pm medications, iv infusing without complications, no distress noted, will continue to monitor patient, call light within reach
[2020-01-16] VITALS: BP 105/72
[2020-01-16 04:00] VITALS: BP 143/68
[2020-01-16 04:23] LABS: ANION GAP 9.4 mmol/L (8-16); CALCIUM 9.1 mg/dL (8.5-10.1); CARBON DIOXIDE 32.4 mmol/L (21.0-32.0); CREATININE - SERUM 2.4 mg/dL (0.6-1.3); POTASSIUM - SERUM 3.8 mmol/L (3.5-5.1)
[2020-01-16 04:45] LABS: BASOPHILS 0.1 % (0-2); EOSINOPHILS 0.3 % (0-7); HEMATOCRIT 22.3 % (42.0-54.0); IMMATURE GRANULOCYTES 0.3 % (0-5); LYMPHOCYTES 12.3 % (15-50); MCH 29.9 pg (26.0-34.0); MCHC 32.3 g/dL (31.0-37.0); MCV 92.5 fL (80.0-100.0); MEAN PLATELET VOLUME 10.5 fL (7.4-10.4); MONOCYTES 15.1 % (2-11); NEUTROPHILS 71.9 % (40-80); PLATELET COUNT 196 10x3/uL (130-400); RBC 2.41 10x6/uL (4.20-6.10); RDW 16.4 % (11.5-14.5)
[2020-01-16 05:03] LABS: WBC 15.7 10x3/uL (4.8-10.8)
[2020-01-16 05:04] LABS: HEMOGLOBIN 7.2 g/dL (13.5-17.5)
--- NOTE | 2020-01-16 05:19 | NUR ---
YOLY ACUÑA APN PAGED FOR HEMOGLOBIN 7.2
--- NOTE | 2020-01-16 06:00 | NUR ---
#1 UNIT PRBC INFUSING @75CC/HR, BP 136/68, P 94, RESP 18, TEMP 100.4 (A00, UROSTOMY BAG LEAKING, BED CHANGE DONE, WILL CONTINUE TO MONITOR PATIENT
--- NOTE | 2020-01-16 06:15 | NUR ---
PATIENT TOLERATING BLOOD TRANSFUSION, BP 133/65, P 102, BP 133/65, TEMP 99.3 (A), WILL CONTINUE TO MONITOR PATIENT
[2020-01-16 08:00] VITALS: BP 143/77
[2020-01-16 11:00] VITALS: BP 124/75
--- NOTE | 2020-01-16 12:07 | NUR ---
2ND UNIT OF BLOOD FINISHED WITH NO S/S OF REACTION. PATIENT TO REFUSE HIS FLORAGEN AND ELIQUIS. WILL TALK TO DOCTOR AND SEE ABOUT LEVONOX. TO CALL DOCTOR AND CLARIFY IV POTASSIUM POTASSIUM LEVEL IS NORMAL TODAY.
--- NOTE | 2020-01-16 12:22 | NUR ---
DR BELL IN ROOM AND ORDER IS CLARIFIED WITH IV POTASSIUM.
--- NOTE | 2020-01-16 12:41 | NUR ---
PER DR BELL TO CANCEL TRANSFUSE OF OTHER TWO UNITS OF BLOOD SHE DID NOT KNOW PATIENT HAD ALREADY RECEIVED THE TWO UNITS THIS AM.
[2020-01-16 14:54] LABS: HEMATOCRIT 28.9 % (42.0-54.0); HEMOGLOBIN 9.4 g/dL (13.5-17.5)
[2020-01-16 15:00] VITALS: BP 133/73
--- NOTE | 2020-01-16 16:58 | NUR ---
NO ORDER FOR LOVENOX IN SYSTEM YET. PAGE INTO YOLY ACUÑA APN. AWAITING CALL BACK.
[2020-01-16 17:29] LABS: CREATININE - URINE 14.5 mg/dL (30-125)
[2020-01-16 20:00] VITALS: BP 122/68
--- NOTE | 2020-01-16 23:16 | NUR ---
PATIENT IS SLEEPING IN BED. HIS IS LETHARGIC AND DOES NOT RESPOND. HE IS ON NASAL CANULA. HE HAS UROSTOMY AND COLOSTOMY.
[2020-01-17] VITALS: BP 133/77
[2020-01-17 04:00] VITALS: BP 136/68
--- NOTE | 2020-01-17 04:41 | NUR ---
PATIENT IS STILL LETHARGIC IN BED. HIS UROSTOMY IS LEAKING. WE DID A WHOLE BED CHANGE. I ASKED THE WOUND NURSE TO HELP ME WITH THE UROSTOMY, BUT SHE WALKED OFF.
[2020-01-17 06:20] LABS: BASOPHILS 0.1 % (0-2); EOSINOPHILS 0.1 % (0-7); HEMATOCRIT 28.1 % (42.0-54.0); IMMATURE GRANULOCYTES 0.4 % (0-5); MCH 29.2 pg (26.0-34.0); MCV 91.2 fL (80.0-100.0); MEAN PLATELET VOLUME 9.7 fL (7.4-10.4); MONOCYTES 10.1 % (2-11); NEUTROPHILS 80.3 % (40-80); PLATELET COUNT 177 10x3/uL (130-400); RDW 16.7 % (11.5-14.5); WBC 17.5 10x3/uL (4.8-10.8)
[2020-01-17 06:23] LABS: RBC 3.08 10x6/uL (4.20-6.10)
[2020-01-17 06:29] LABS: ANION GAP 9.8 mmol/L (8-16); CARBON DIOXIDE 31.4 mmol/L (21.0-32.0); CREATININE - SERUM 2.8 mg/dL (0.6-1.3)
[2020-01-17 06:30] LABS: POTASSIUM - SERUM 3.2 mmol/L (3.5-5.1)
[2020-01-17 09:00] VITALS: BP 127/71
[2020-01-17 11:00] VITALS: BP 148/84
--- NOTE | 2020-01-17 12:35 | NUR ---
Nutrition Follow-up: Nursing reports that pt has not been eating for several days. ST eval pending to r/o aspiration. Noted pt bleeding from pressure injuries. Nursing reports edema. Diet: Regular, Ensure TID Wt: 179# (01/16); 178.3# (01/11) Labs noted: Na 146, K+ 3.2, Glu 124 Meds noted: D5 1/2NS @ 100, Lasix, Albumin, Protonix, electrolyte protocol -Rec nutrition support 2/2 poor PO intake x several days with wounds present. -Monitor wt; noted daily wts ordered. -RD following.
[2020-01-17 15:00] VITALS: BP 142/77
--- NOTE | 2020-01-17 15:16 | MORECARE ---
CASE MANAGEMENT DISCHARGE SUMMARY PATIENT: CHITO MARINELLI UNIT: [id number] ADM DATE: 01/06/20 AGE: 64 : 59 SEX: M ROOM/BED: D.210 AUTHOR: JEFFREY MARTINEZ PHYSICIAN: REFERRING PHYSICIAN: PATRICIA SAMANIEGO MD DATE OF SERVICE: 01/17/20 Discharge Plan Patient Name: CHITO MARINELLI [facility] [facility] 1955 Planned Disposition: Anticipated Discharge Date: Discharge Date: Expected LOS: Initial Reviewer: [email or web address] Initial Review Date: 01/06/2020 Generated: 01/17/20 4:15 pm Comments DCP- Discharge Planning Updated by [email or web address]: Maren Mcclure on 01/17/20 2:[address] CM contacted [facility] to determine the patients' bed status. Per the real estate director, the patient was in a long wall shear operator bed and it is still available for him, upon DC. DCP- Discharge Planning Updated by [email or web address]: Maren Mcclure on 01/11/20 9:[address] CM met with patient to discuss initial discharge planning. Patient is in agreement to proceed with the assessment. Patient reports that he lives at [facility]/Rehab in a LT bed. Patient is alert/oriented. Stairs/steps: 0 PCP: Dr. Carltno. Pharmacy: [facility]. DME: [place] provides. Emergency contact:: Ana Lance (cousin) [phone].. Patient is in agreement to returning to the [place] at this time and feels safe returning to previous environment. Patient denies hospitalization within the past 30 days. Patient denies the use of community resources SOFTWARE DEVELOPER MID LEVEL. Transportation at time of discharge: [place] [facility]. Last DP export: 01/11/20 4:06 p Patient Name: CHITO MARINELLI Page [id number] at 1516 All edits/amendments must be made on the electronic document DICTATION DATE: 01/17/201515 GEOTHERMAL PRODUCTION MANAGER: GUSTAVO 01/17/20 1516 RPT#: [id number] DC DATE: STATUS: ADM IN [facility] [address] [place] [address] END OF REPORT
[2020-01-17 15:42] LABS: HEMATOCRIT 27.7 % (42.0-54.0); HEMOGLOBIN 8.8 g/dL (13.5-17.5)
--- NOTE | 2020-01-17 16:06 | MORECARE ---
CASE MANAGEMENT DISCHARGE SUMMARY PATIENT: CHITO MARINELLI UNIT: [id number] ADM DATE: 01/06/20 AGE: 64 : 59 SEX: M ROOM/BED: D.2103 AUTHOR: JEFFREY MARTINEZ PHYSICIAN: REFERRING PHYSICIAN: PATRICIA SAMANIEGO MD DATE OF SERVICE: 01/17/20 Discharge Plan Patient Name: CHITO MARINELLI [facility] : 1955 Planned Disposition: Nursing Facility PILO Cert Anticipated Discharge Date: Discharge Date: Expected LOS: Initial Reviewer: [email or web address] Initial Review Date: 01/06/2020 Generated: 01/17/20 5:05 pm Comments DCP- Discharge Planning Updated by [email or web address]: Maren Mcclure on 01/17/20 2:[address] CM contacted [facility] to determine the patients' bed status. Per the admissions counselor, the patient was in a residential bed and it is still available for him, upon DC. DCP- Discharge Planning Updated by [email or web address]: Maren Mcclure on 01/11/20 9:[address] CM met with patient to discuss initial discharge planning. Patient is in agreement to proceed with the assessment. Patient reports that he lives at [facility]/Rehab in a LT bed. Patient is alert/oriented. Stairs/steps: 0 PCP: Dr. Carlton. Pharmacy: [facility]. DME: [place] provides. Emergency contact:: Ana Lance (cousin) [phone].. Patient is in agreement to returning to the [place] at this time and feels safe returning to previous environment. Patient denies hospitalization within the past 30 days. Patient denies the use of community resources ASSOCIATE ACCOUNT EXECUTIVE. Transportation at time of discharge: [place] Van. Last DP export: 01/17/20 2:16 p Patient Name: CHITO MARINELLI Page [id number] at 1606 All edits/amendments must be made on the electronic document DICTATION DATE: 01/17/20 160 SEWING MACHINE OPERATOR PLASTIC ZIPPER: GUSTAVO 01/17/20 1605 RPT#: [id number] DC DATE: STATUS: ADM IN [facility] [address] [place] [address] END OF REPORT
--- NOTE | 2020-01-17 18:28 | NUR ---
RESP UL ON 02 4L NC. COLOSTOMY BAG INTACT. NURSE AT CHANGING UROSTOMY BAG. WILL CONT. PLAN OF CARE.
--- NOTE | 2020-01-17 19:45 | NUR ---
PATIENT IS RESTING IN BED. HE SEEMS MORE ALERT TODAY. HE IS SPEAKING. HIS UROSTOMY IS WORKING SO FAR. HE IS ON OXYGEN VIA NASAL CANULA. HIS COLOSTOMY IS INTACT. WE WILL CONTINUE TO MONITOR HIS MENTATION.
[2020-01-17 20:00] VITALS: BP 152/77
[2020-01-18] VITALS (9 sets, daily range): BP systolic 124–157; BP diastolic 70–90
--- NOTE | 2020-01-18 04:34 | NUR ---
PATIENT IS SLEEPING IN BED. HIS UROSTOMY IS STILL WORKING. i CHECKED HIS WOUNDS AT 0230. THE DRESSINGS WERE CLEAN DRY AND INTACT. HIS MENTATION IS BETTER.
[2020-01-18 06:53] LABS: BASOPHILS 0.2 % (0-2); EOSINOPHILS 0.6 % (0-7); HEMATOCRIT 25.5 % (42.0-54.0); HEMOGLOBIN 7.9 g/dL (13.5-17.5); IMMATURE GRANULOCYTES 0.2 % (0-5); LYMPHOCYTES 16.4 % (15-50); MCH 28.7 pg (26.0-34.0); MCV 92.7 fL (80.0-100.0); MEAN PLATELET VOLUME 10.9 fL (7.4-10.4); MONOCYTES 9.5 % (2-11); NEUTROPHILS 73.1 % (40-80); PLATELET COUNT 188 10x3/uL (130-400); RBC 2.75 10x6/uL (4.20-6.10)
[2020-01-18 06:55] LABS: WBC 12.4 10x3/uL (4.8-10.8)
[2020-01-18 07:22] LABS: ANION GAP 11.3 mmol/L (8-16); CALCIUM 8.6 mg/dL (8.5-10.1); CARBON DIOXIDE 28.9 mmol/L (21.0-32.0); CREATININE - SERUM 2.9 mg/dL (0.6-1.3); POTASSIUM - SERUM 3.2 mmol/L (3.5-5.1); VANCOMYCIN - RANDOM 49.4 ug/mL (10.0-20.0)
--- NOTE | 2020-01-18 07:27 | NUR ---
PT LAYING SUPINE, RR EVEN AND UNLABORED. CALL LIGHT WITHIN REACH. UREOSTOMY INTACT REMAINS FREE OF LEAKS. NO DISTRESS NOTED. BED IN LOWEST POSITION. WILL CONTINUE TO MONITOR.
--- NOTE | 2020-01-18 17:19 | NUR ---
PATIENT NOTED TO HAVING ILEO CONDUIT FOR DRAINAGE OF URINE, DID CYSTO THROUGH THE ILEO CONDUIT, SHAKIRA.
--- NOTE | 2020-01-18 18:42 | NUR ---
PT IS LETHARGIC AND BEDFAST. RR EVEN AND UNLABORED ON 4L 02. NO S/S OF DISTRESS NOTED. BEGAN INFUSION OF BLOOD @1820. WILL CTM.
[2020-01-19 00:50] VITALS: BP 155/82
[2020-01-19 01:05] VITALS: BP 152/81
[2020-01-19 03:50] VITALS: BP 141/92
--- NOTE | 2020-01-19 06:50 | NUR ---
RESTING IN BED WITH EYES CLOSED. RESPIRATIONS EVEN AND UNLABORED. NO S/S OF ACUTE DISTRESS NOTED. ILEOSTOMY TO RIGHT ABDOMEN. COLOSTOMY TO LEFT ABDOMEN. GENERALIZED EDEMA. TEMP OF 100 THIS AM. ON 4L O2, NC. RIGHT IJ, D5 1/2 NS INFUSING @ 100ML/HR. SITE PATENT WITHOUT REDNESS OR SWELLING. ON 1ST STEP OVERLAY MATTRESS. CALL LIGHT IN REACH. WILL CONTINUE TO MONITOR.
[2020-01-19 07:10] LABS: BASOPHILS 0.1 % (0-2); EOSINOPHILS 1.6 % (0-7); IMMATURE GRANULOCYTES 0.2 % (0-5); LYMPHOCYTES 20.1 % (15-50); MCH 30.3 pg (26.0-34.0); MCHC 32.9 g/dL (31.0-37.0); MEAN PLATELET VOLUME 11.3 fL (7.4-10.4); MONOCYTES 7.6 % (2-11); NEUTROPHILS 70.4 % (40-80); PLATELET COUNT 189 10x3/uL (130-400); RDW 15.8 % (11.5-14.5); WBC 10.7 10x3/uL (4.8-10.8)
[2020-01-19 07:11] LABS: HEMATOCRIT 33.4 % (42.0-54.0); RBC 3.63 10x6/uL (4.20-6.10)
[2020-01-19 07:48] LABS: ANION GAP 12.6 mmol/L (8-16); CALCIUM 9.1 mg/dL (8.5-10.1); CARBON DIOXIDE 28.6 mmol/L (21.0-32.0); CREATININE - SERUM 2.9 mg/dL (0.6-1.3); POTASSIUM - SERUM 3.2 mmol/L (3.5-5.1); VANCOMYCIN - RANDOM 37.4 ug/mL (10.0-20.0)
[2020-01-19 10:58] VITALS: BP 135/69
--- NOTE | 2020-01-19 11:25 | NUR ---
I have reviewed this patient and I concur with the Shift Assessment completed by the Licensed Practical Nurse today this shift.
[2020-01-19 15:27] VITALS: BP 138/77
--- NOTE | 2020-01-19 18:41 | NUR ---
RESTING IN BED WITH EYES OPEN. NO C/O PAIN. NO S/S OF ACUTE DISTRESS NOTED. DENIES ANY NEEDS AT THIS TIME. CALL LIGHT IN REACH. WILL CONTINUE TO MONITOR.
--- NOTE | 2020-01-19 19:34 | NUR ---
RECIEVED BEDSIDE SHIFT REPORT. REPORTED HE IS APHASIC. SPOKE WITH HIM AND REMINDED HIM THAT HE SPOKE TO ME LAST WEEKEND. FINALLY HE STARTED SPEAKING AND TOOK SEVERAL DRINKS OF WATER. SPEECH IS CLEAR. ANSWERED SIMPLE QUESTION AND REQUEST A COLA. SEEMS TO BE HAVING A PROBLEM RAISING HIS HAND TO DRINK. PROBABLY NEEDS ASSIST TO EAT AND DRINK. O2@ 4 L[address]ERS[address] PER N/C IN PLACE. RT IJ WITH D5 1/2 NS AT 100. UROSTOMY AND COLOSTOMY INTACT. REMAINS ON [address] [facility] MATTRESS D/T SURICAL SITES TO RT AND LT BUTTOCKS. DENIES ANY NEEDS AT THIS TIME.
[2020-01-19 20:47] VITALS: BP 154/88
[2020-01-20 00:22] VITALS: BP 171/98
[2020-01-20 04:30] VITALS: BP 157/93
[2020-01-20 04:40] LABS: BASOPHILS 0.2 % (0-2); EOSINOPHILS 2.2 % (0-7); HEMATOCRIT 33.7 % (42.0-54.0); HEMOGLOBIN 10.8 g/dL (13.5-17.5); IMMATURE GRANULOCYTES 0.2 % (0-5); LYMPHOCYTES 21.6 % (15-50); MCH 29.7 pg (26.0-34.0); MCV 92.6 fL (80.0-100.0); MEAN PLATELET VOLUME 10.8 fL (7.4-10.4); MONOCYTES 7.6 % (2-11); NEUTROPHILS 68.2 % (40-80); PLATELET COUNT 173 10x3/uL (130-400); RBC 3.64 10x6/uL (4.20-6.10); RDW 15.8 % (11.5-14.5)
[2020-01-20 04:55] LABS: ANION GAP 10.8 mmol/L (8-16); CARBON DIOXIDE 29.3 mmol/L (21.0-32.0); CREATININE - SERUM 2.8 mg/dL (0.6-1.3); POTASSIUM - SERUM 3.1 mmol/L (3.5-5.1); VANCOMYCIN - RANDOM 28.5 ug/mL (10.0-20.0)
--- NOTE | 2020-01-20 07:20 | NUR ---
RECIEVE REPORT. RESTING IN BED WITH EYES CLOSED. NO SIGNS OF DISTRESS. CALL LIGHT IN REACH.
[2020-01-20 09:17] VITALS: BP 147/89
[2020-01-20 12:08] VITALS: BP 140/75
[2020-01-20 17:11] VITALS: BP 160/83
[2020-01-20 20:30] VITALS: BP 143/87
[2020-01-21 00:30] VITALS: BP 149/83
[2020-01-21 04:36] VITALS: BP 147/84
[2020-01-21 05:21] LABS: BASOPHILS 0.3 % (0-2); EOSINOPHILS 2.4 % (0-7); HEMATOCRIT 32.8 % (42.0-54.0); HEMOGLOBIN 10.4 g/dL (13.5-17.5); IMMATURE GRANULOCYTES 0.2 % (0-5); LYMPHOCYTES 32.4 % (15-50); MCH 29.5 pg (26.0-34.0); MCHC 31.7 g/dL (31.0-37.0); MCV 92.9 fL (80.0-100.0); MEAN PLATELET VOLUME 10.8 fL (7.4-10.4); MONOCYTES 8.3 % (2-11); NEUTROPHILS 56.4 % (40-80); PLATELET COUNT 204 10x3/uL (130-400); RBC 3.53 10x6/uL (4.20-6.10); RDW 15.7 % (11.5-14.5); WBC 6.2 10x3/uL (4.8-10.8)
[2020-01-21 05:43] LABS: ANION GAP 13.5 mmol/L (8-16); CARBON DIOXIDE 27.2 mmol/L (21.0-32.0); CREATININE - SERUM 2.6 mg/dL (0.6-1.3); MAGNESIUM - SERUM 1.7 mg/dL (1.8-2.4); POTASSIUM - SERUM 3.7 mmol/L (3.5-5.1); VANCOMYCIN - RANDOM 21.2 ug/mL (10.0-20.0)
--- NOTE | 2020-01-21 07:20 | NUR ---
RECEIVE REPORT AT BEDSIDE. LYING IN BED WITH EYES CLOSED. NO SIGNS OF DISTRESS. WILL CONTINUE PLAN OF CARE AND SAFETY PRECAUTIONS.
[2020-01-21 08:16] VITALS: BP 161/81
--- NOTE | 2020-01-21 10:00 | NUR ---
WHEN DOING ASSESSMENT FOUND THAT PATIENT WAS IN A POOL OF BLOOD, ACTIVELY BLEEDING FROM WOUNDS ON BUTTOCKS. LARGE CLOT PRESENT IN WOUND BED, LEFT THERE. COMPLETE LINEN CHANGE AND BED BATH DONE. APPLIED PRESSURE DRESSING TO WOUNDS. CHANGED DRESSINGS ON BILATERAL HEELS. WOUNDS PINK. CVL DRESSING CHANGED. RIGHT WRIST IV D/C. TIP INTACT. WILL CONTINUE MONITORING WOUNDS FOR BLEEDING.
[2020-01-21 11:49] LABS: HEMATOCRIT 26.8 % (42.0-54.0); HEMOGLOBIN 8.4 g/dL (13.5-17.5)
--- NOTE | 2020-01-21 12:45 | NUR ---
TALKED WITH DR. JAMES ABOUT ACTIVE BLEEDING FROM WOUNDS. HE RECOMMENDED TO STOP ELIQUIS. WOUNDS ASSESSED AND REDRESSED. FIBRILLAR APPLIED.
[2020-01-21 12:48] VITALS: BP 141/74
--- NOTE | 2020-01-21 13:07 | NUR ---
COLOSTOMY LEAKING. TRIED TO CHANGE IT BUT PATIENT REFUSED. WILL REASSESS AND TRY TO CHANGE AGAIN LATER.
[2020-01-21 17:01] VITALS: BP 161/72
[2020-01-21 18:14] LABS: APTT 56.4 SECONDS (22.8-39.4); INR 1.34 (0.85-1.17); PROTIME 16.5 SECONDS (11.6-15.0)
--- NOTE | 2020-01-21 19:00 | NUR ---
REPORT RECEIVED, WILL CONTINUE POC. PATIENT IS RESTING WITH EYES CLOSED, NO S/S OF DISTRESS OBSERVED, RR EVEN AND UNLABORED ON 4L O2 VIA NC. NO NEEDS EXPRESSED AT THIS TIME. CL IN REACH, BED LOCKED AND LOWERED. WILL CTM.
[2020-01-21 20:21] VITALS: BP 117/80
[2020-01-22 00:33] VITALS: BP 118/67
--- NOTE | 2020-01-22 04:50 | NUR ---
I have reviewed this patient and I concur with the Shift Assessment completed by the Licensed Practical Nurse today this shift.
[2020-01-22 05:48] VITALS: BP 111/61
--- NOTE | 2020-01-22 06:03 | NUR ---
UNABLE TO OBTAIN ALL AM LABS. RT IJ CVL FLUSHED WITH EASE, A LITTLE DIFFICULTY DRAWING UP WASTE. WHEN ATTEMPTED TO WITHDRAW LAB WAS ONLY ABLE TO OBTAIN ENOUGH BLOOD FOR 1 TUBE. TRIED TO MANUEVER PATIENT BUT HE WAS RESISTING.
[2020-01-22 06:50] LABS: ANION GAP 15.1 mmol/L (8-16); CALCIUM 8.3 mg/dL (8.5-10.1); CARBON DIOXIDE 21.4 mmol/L (21.0-32.0); CREATININE - SERUM 2.2 mg/dL (0.6-1.3); POTASSIUM - SERUM 3.5 mmol/L (3.5-5.1); VANCOMYCIN - RANDOM 16.4 ug/mL (10.0-20.0)
--- NOTE | 2020-01-22 07:20 | NUR ---
RECIEVE REPORT AT BEDSIDE. RESTING IN BED WITH EYES CLOSED. CALL LIGHT IN REACH. WILL CONTINUE PLAN OF CARE AND SAFETY PRECAUTIONS.
[2020-01-22 08:00] VITALS: BP 130/65
--- NOTE | 2020-01-22 10:24 | NUR ---
Nutrition Follow-up: CLOTH EXAMINER MACHINE reports pt not eating solids but she can usually get him to drink some Ensure (chocolate or vanilla) or iced tea. ST following. Noted puree was not carried over following urology procedure. Diet: Regular PO intake: 0-20% Wt: 182# (01/17); 178.3# (01/11); 175# (01/05) Last BM: 01/18 per chart Labs noted: Glu 121, Ca 8.3 Meds noted: D5 1/2NS @ 75, Protonix, electrolyte protocol -Add puree back to diet order per ST recs. -Encourage PO intake and honor food preferences within diet restrictions. -+Ensure with meals. -Rec consider nutrition support 2/2 ongoing poor PO intake and wounds. -Need new wt; noted daily wts ordered. -RD following.
--- NOTE | 2020-01-22 10:30 | NUR ---
ALERT. YELLS OUT, "MY BAG! MY BAG!" SOILED LINENS WITH POOL OF BLOOD. BED BATH AND LINEN CHANGE COMPLETE. RESECURE PRESSURE DRESSING TO BUTTOCKS. UROSTOMY AND COLOSTOMY BAG CHANGED. CONTINUE PLAN OF CARE AND SAFETY PRECAUTIONS.
[2020-01-22 11:00] VITALS: BP 117/61
[2020-01-22 13:12] LABS: BASOPHILS 0.4 % (0-2); EOSINOPHILS 2.3 % (0-7); IMMATURE GRANULOCYTES 0.1 % (0-5); LYMPHOCYTES 32.8 % (15-50); MCH 29.1 pg (26.0-34.0); MCHC 31.5 g/dL (31.0-37.0); MCV 92.5 fL (80.0-100.0); MEAN PLATELET VOLUME 10.4 fL (7.4-10.4); MONOCYTES 8.7 % (2-11); NEUTROPHILS 55.7 % (40-80); PLATELET COUNT 212 10x3/uL (130-400); RDW 14.9 % (11.5-14.5); WBC 7.4 10x3/uL (4.8-10.8)
[2020-01-22 13:19] LABS: RBC 2.13 10x6/uL (4.20-6.10)
[2020-01-22 13:20] LABS: HEMATOCRIT 19.7 % (42.0-54.0); HEMOGLOBIN 6.2 g/dL (13.5-17.5)
[2020-01-22 15:00] VITALS: BP 100/58
--- NOTE | 2020-01-22 15:18 | NUR ---
NOTIFIED DOM AND DR. KAY OF CRITICAL LAB HGB 6.2 AND HCT 19.7. PLAN WAS TO TRANSFUSE 2 UNITS OF BLOOD. BLOOD CANCELLED DUE TO PATIENT FAMILY AGREES TO HOSPICE IN LONGTERM.
--- NOTE | 2020-01-22 17:34 | MORECARE ---
CASE MANAGEMENT DISCHARGE SUMMARY PATIENT: CHITO MARINELLI UNIT: [id number] ADM DATE: 01/06/20 AGE: 64 : 59 SEX: M ROOM/BED: D.2103 AUTHOR: JUAN,DOC PHYSICIAN: REFERRING PHYSICIAN: PATRICIA SAMANIEGO MD DATE OF SERVICE: 01/22/20 Discharge Plan Patient Name: CHITO MARINELLI [facility] : 1955 Planned Disposition: Nursing Facility PILO Cert Anticipated Discharge Date: 01/23/20 Discharge Date: Expected LOS: 17 Initial Reviewer: [email or web address] Initial Review Date: 01/06/2020 Generated: 01/22/20 6:33 pm Comments DCP- Discharge Planning Updated by [email or web address]: Maren Mcclure on 01/22/20 4:[address] CM received an order [facility] Hospice consult [facility] Contacted Marketing And Communications Officer, Marley Mckay ([phone]), who states that they will accept patient back 01/22, to the [facility]. Patient will require ambulance transportation to the facility. CM contacted patient's 2nd oldest sister, Onelia Robison ([phone]) to discuss patient's exterminator helper termite goals of care. CM explained the benefits of Hospice/palliative care. Onelia states she will have to discuss the options with her sisters and brother, Lloyd. DCP- Discharge Planning Updated by [email or web address]: Maren Mcclure on 01/17/20 2:[address] CM contacted [facility] to determine the patients' bed status. Per the medical genetics director, the patient was in a intermediate bed and it is still available for him, upon DC. DCP- Discharge Planning Updated by [email or web address]: Maren Mcclure on 01/11/20 9:[address] CM met with patient to discuss initial discharge planning. Patient is in agreement to proceed with the assessment. Patient reports that he lives at [facility]/Rehab in a LT bed. Patient is alert/oriented. Stairs/steps: 0 PCP: Dr. Carlton. Pharmacy: [facility]. DME: [place] provides. Emergency contact:: Ana Lance (cousin) [phone].. Patient is in agreement to returning to the [place] at this time and feels safe returning to previous environment. Patient denies hospitalization within the past 30 days. Patient denies the use of community resources MEDICAL RECORDS FIELD TECHNICIAN. Transportation at time of discharge: [place] Van. Last DP export: 01/17/20 3:06 p Patient Name: CHITO MARINELLI Page [id number] at 1734 All edits/amendments must be made on the electronic document DICTATION DATE: 01/22/201733 FILTER PRESS TENDER HEAD: GUSTAVO 01/22/201733 RPT#: [id number] DC DATE: STATUS: ADM IN [facility] [address] [place] [address] END OF REPORT
--- NOTE | 2020-01-22 17:41 | MORECARE ---
CASE MANAGEMENT DISCHARGE SUMMARY PATIENT: CHITO MARINELLI UNIT: [id number] ADM DATE: 01/06/20 AGE: 64 : 59 SEX: M ROOM/BED: D.2103 AUTHOR: JUAN,DOC PHYSICIAN: REFERRING PHYSICIAN: PATRICIA SAMANIEGO MD DATE OF SERVICE: 01/22/20 Discharge Plan Patient Name: CHITO MARINELLI Facility: [facility]:[place] : 1955 Planned Disposition: Home with Hospice Anticipated Discharge Date: 01/23/20 Discharge Date: Expected LOS: 17 Initial Reviewer: [email or web address] Initial Review Date: 01/06/2020 Generated: 01/22/20 6:40 pm Comments DCP- Discharge Planning Updated by [email or web address]: Maren Mcclure on 01/22/20 4:[address] CM received an order for Hospice consult [phone] Contacted Gas Engine Performance Engineer, Marley Mckay ([phone]), who states that they will accept patient back 01/22, to the [facility]. Patient will require ambulance transportation to the facility. CM contacted patient's 2nd oldest sister, Onelia Robison ([phone]) to discuss patient's prison goals of care. CM explained the benefits of Hospice/palliative care. Onelia states she will have to discuss the options with her sisters and brother, Lloyd. DCP- Discharge Planning Updated by [email or web address]: Maren Mcclure on 01/17/20 2:[address] CM contacted [facility] to determine the patients' bed status. Per the platform operations director, the patient was in a ferry terminal agent bed and it is still available for him, upon DC. DCP- Discharge Planning Updated by [email or web address]: Maren Mcclure on 01/11/20 9:[address] CM met with patient to discuss initial discharge planning. Patient is in agreement to proceed with the assessment. Patient reports that he lives at [facility]/Rehab in a LT bed. Patient is alert/oriented. Stairs/steps: 0 PCP: Dr. Carlton. Pharmacy: [facility]. DME: [place] provides. Emergency contact:: Anabebo Lance (cousin) [phone].. Patient is in agreement to returning to the [place] at this time and feels safe returning to previous environment. Patient denies hospitalization within the past 30 days. Patient denies the use of community resources RESEARCH ASSOCIATE QUALITY CONTROL QC. Transportation at time of discharge: [place] Van. Last DP export: 01/17/20 3:06 p Patient Name: CHITO MARINELLI Page [phone] at 1741 All edits/amendments must be made on the electronic document DICTATION DATE: 01/22/201739 TOURIST INFORMATION ASSISTANT: GUSTAVO 01/22/201739 RPT#: [id number] DC DATE: STATUS: ADM IN [facility] [address] [place] [address] END OF REPORT
[2020-01-22 20:50] VITALS: BP 105/55
--- NOTE | 2020-01-22 23:33 | NUR ---
REC'D CHGE OF SHIFT WALKING ROUNDS SUPINE POSITION OPEN EYES WHEN NAME CALLED AND REPEATS WHAT YOU JUST SAID.TABITHA GAVIRIAG. DRY AND INTACT TO BOTH FEET ELEVATED 1ST STEP BED.02 4L NC.UROSTOMY AND COLOSTOMY INTACT.HOSPICE HERE.TURNED TO LEFT SIDE. WILL CONTINUE TO MONITOR FOR ANY CHGES AND FOLLOW CURRENT PLAN OF CARE
[2020-01-23 00:39] VITALS: BP 131/65
--- NOTE | 2020-01-23 03:15 | NUR ---
I have reviewed this patient and I concur with the Shift Assessment completed by the Licensed Practical Nurse today this shift.
[2020-01-23 05:13] VITALS: BP 101/57
[2020-01-23 06:50] LABS: BASOPHILS 0.3 % (0-2); EOSINOPHILS 2.5 % (0-7); IMMATURE GRANULOCYTES 0.3 % (0-5); LYMPHOCYTES 44.5 % (15-50); MCH 28.7 pg (26.0-34.0); MCV 92.6 fL (80.0-100.0); MEAN PLATELET VOLUME 10.7 fL (7.4-10.4); MONOCYTES 9.1 % (2-11); NEUTROPHILS 43.3 % (40-80); PLATELET COUNT 227 10x3/uL (130-400); WBC 6.8 10x3/uL (4.8-10.8)
[2020-01-23 06:53] LABS: RBC 2.58 10x6/uL (4.20-6.10)
[2020-01-23 06:55] LABS: ANION GAP 10.7 mmol/L (8-16); CREATININE - SERUM 2.2 mg/dL (0.6-1.3); HEMATOCRIT 23.9 % (42.0-54.0); HEMOGLOBIN 7.4 g/dL (13.5-17.5); POTASSIUM - SERUM 3.9 mmol/L (3.5-5.1); VANCOMYCIN - RANDOM 14.3 ug/mL (10.0-20.0)
[2020-01-23 06:58] LABS: CARBON DIOXIDE 28.2 mmol/L (21.0-32.0)
--- NOTE | 2020-01-23 07:15 | NUR ---
REC'D IN BED WITH EYES CLOSED AROUSED TO VOICED. RESP EVEN AND UNLABORED WITH NO DISTRESS NOTED. UNABLE TO EXPRESS ANY NEEDS OR WANTS. TURN AND REPOSITIONED Q 2 HRS AND PRN. DRESSING INTACT TO BLE AND COCCYX. PT ALSO HAS SOME OPEN AREAS NOTED TO RIGHT ARM. ASSESSMENT COMPLETED. C/L IN REACH AT BEDSIDE.
--- NOTE | 2020-01-23 08:48 | MORECARE ---
CASE MANAGEMENT DISCHARGE SUMMARY PATIENT: CHITO MARINELLI UNIT: [id number] ADM DATE: 01/06/20 AGE: 64 : 59 SEX: M ROOM/BED: D.2103 AUTHOR: JUAN,DOC PHYSICIAN: REFERRING PHYSICIAN: PATRICIA SAMANIEGO MD DATE OF SERVICE: 01/23/20 Discharge Plan Patient Name: CHITO MARINELLI Facility: [facility]:[place] : 1955 Planned Disposition: Home with Hospice Anticipated Discharge Date: 01/23/20 Discharge Date: Expected LOS: 17 Initial Reviewer: [email or web address] Initial Review Date: 01/06/2020 Generated: 01/23/20 9:48 am Comments DCP- Discharge Planning Updated by [email or web address]: Maren Mcclure on 01/22/20 4:[address] CM received an order for Hospice consult and [facility] ([phone]). Contacted Buffing Turner And Counter, Marley Mckay ([phone]), who states that they will accept patient back 01/22, to the [facility]. Patient will require ambulance transportation to the facility. CM contacted patient's 2nd oldest sister, Onelia Robison ([phone]) to discuss patient's long-term goals of care. CM explained the benefits of Hospice/palliative care. Onelia states she will have to discuss the options with her sisters and brother, Lloyd. DCP- Discharge Planning Updated by [email or web address]: Maren Mcclure on 01/17/20 2:[address] CM contacted [facility] to determine the patients' bed status. Per the senior director creative services, the patient was in a predatory animal exterminator bed and it is still available for him, upon DC. DCP- Discharge Planning Updated by [email or web address]: Maren Mcclure on 01/11/20 9:[address] CM met with patient to discuss initial discharge planning. Patient is in agreement to proceed with the assessment. Patient reports that he lives at [facility]/Rehab in a LT bed. Patient is alert/oriented. Stairs/steps: 0 PCP: Dr. Carlton. Pharmacy: [facility]. DME: [place] provides. Emergency contact:: Anabebo Lance (cousin) [phone].. Patient is in agreement to returning to the [place] at this time and feels safe returning to previous environment. Patient denies hospitalization within the past 30 days. Patient denies the use of community resources PARTS PERSON. Transportation at time of discharge: [place] Van. External Providers External Provider: OTHER-OTHER Next Contact Date: Service Request Date: Service Type: Resolution: Reviewer: Comments: Last DP export: 01/22/20 4:40 p Patient Name: CHITO MARINELLI Page [phone] at 0848 All edits/amendments must be made on the electronic document DICTATION DATE: 01/23/20847 SOFTWARE DEVELOPER: GUSTAVO 01/23/2048 RPT#: [id number] DC DATE: STATUS: ADM IN [facility] [address] [place] [address] END OF REPORT
[2020-01-23 08:59] VITALS: BP 105/57
--- NOTE | 2020-01-23 09:03 | MORECARE ---
CASE MANAGEMENT DISCHARGE SUMMARY PATIENT: CHITO MARINELLI UNIT: [id number] ADM DATE: 01/06/20 AGE: 64 : 59 SEX: M ROOM/BED: D.2103 AUTHOR: JUAN,DOC PHYSICIAN: REFERRING PHYSICIAN: PATRICIA SAMANIEGO MD DATE OF SERVICE: 01/23/20 Discharge Plan Patient Name: CHITO MARINELLI Facility: [facility]:[place] : 1955 Planned Disposition: Home with Hospice Anticipated Discharge Date: 01/23/20 Discharge Date: Expected LOS: 17 Initial Reviewer: [email or web address] Initial Review Date: 01/06/2020 Generated: 01/23/20 10:02 am Comments DCP- Discharge Planning Updated by [email or web address]: Maren Mcclure on 01/23/20 7:[address] CM faxed the Hospice order to [facility], Attn: Freddie. DCP- Discharge Planning Updated by [email or web address]: Maren Mcclure on 01/22/20 4:[address] CM received an order for Hospice consult and return to [facility] ([phone]). Contacted Computer Science Professor, Marley Mckay ([phone]), who states that they will accept patient back 01/22, to the [facility]. Patient will require ambulance transportation to the facility. CM contacted patient's 2nd oldest sister, Onelia Robison ([phone]) to discuss patient's senior living goals of care. CM explained the benefits of Hospice/palliative care. Onelia states she will have to discuss the options with her sisters and brother, Lloyd. DCP- Discharge Planning Updated by [email or web address]: Maren Mcclure on 01/17/20 2:[address] CM contacted [facility] to determine the patients' bed status. Per the director of recruitment and admissions, the patient was in a senior living bed and it is still available for him, upon DC. DCP- Discharge Planning Updated by [email or web address]: Maren Mcclure on 01/11/20 9:[address] CM met with patient to discuss initial discharge planning. Patient is in agreement to proceed with the assessment. Patient reports that he lives at [facility] in a LT bed. Patient is alert/oriented. Stairs/steps: 0 PCP: Dr. Carlton. Pharmacy: [facility]. DME: [place] provides. Emergency contact:: Ana Lance (cousin) [phone].. Patient is in agreement to returning to the [place] at this time and feels safe returning to previous environment. Patient denies hospitalization within the past 30 days. Patient denies the use of community resources HOSPITAL MONITOR. Transportation at time of discharge: [place] [facility]. Last DP export: 01/23/20 7:48 a Patient Name: CHITO MARINELLI Page [id number] at 0903 All edits/amendments must be made on the electronic document DICTATION DATE: 01/23/20901 COMPLIANCE ENGINEER: GUSTAVO 01/23/20901 RPT#: [id number] DC DATE: STATUS: ADM IN [facility] [address] [place] [address] END OF REPORT
--- NOTE | 2020-01-23 10:41 | MORECARE ---
CASE MANAGEMENT DISCHARGE SUMMARY PATIENT: CHITO MARINELLI UNIT: [id number] ADM DATE: 01/06/20 AGE: 64 : 59 SEX: M ROOM/BED: D.2103 AUTHOR: JUAN,DOC PHYSICIAN: REFERRING PHYSICIAN: PATRICIA SAMANIEGO MD DATE OF SERVICE: 01/23/20 Discharge Plan Patient Name: CHITO MARINELLI Facility: [facility]:[place] : 1955 Planned Disposition: Home with Hospice Anticipated Discharge Date: 01/23/20 Discharge Date: Expected LOS: 17 Initial Reviewer: [email or web address] Initial Review Date: 01/06/2020 Generated: 01/23/20 11:41 am Comments DCP- Discharge Planning Updated by [email or web address]: Maren Mcclure on 01/23/20 7:[address] CM faxed the Hospice order to [facility], Attn: Freddie. DCP- Discharge Planning Updated by [email or web address]: Maren Mcclure on 01/22/20 4:[address] CM received an order for Hospice consult and return to [facility] ([phone]). Contacted Data Center Consultant, Marley Mckay ([phone]), who states that they will accept patient back 01/22, to the [facility]. Patient will require ambulance transportation to the facility. CM contacted patient's 2nd oldest sister, Onelia Robison ([phone]) to discuss patient's shelter goals of care. CM explained the benefits of Hospice/palliative care. Onelia states she will have to discuss the options with her sisters and brother, Lloyd. DCP- Discharge Planning Updated by [email or web address]: Maren Mcclure on 01/17/20 2:[address] CM contacted [facility] to determine the patients' bed status. Per the global expansion sales director, the patient was in a shelter bed and it is still available for him, upon DC. DCP- Discharge Planning Updated by [email or web address]: Maren Mcclure on 01/11/20 9:[address] CM met with patient to discuss initial discharge planning. Patient is in agreement to proceed with the assessment. Patient reports that he lives at [facility] in a LT bed. Patient is alert/oriented. Stairs/steps: 0 PCP: Dr. Carlton. Pharmacy: [facility]. DME: [place] provides. Emergency contact:: Ana Lance (cousin) [phone].. Patient is in agreement to returning to the [place] at this time and feels safe returning to previous environment. Patient denies hospitalization within the past 30 days. Patient denies the use of community resources SECURITY SUPPORT ANALYST. Transportation at time of discharge: [place] [facility]. Last DP export: 01/23/20 8:03 a Patient Name: CHIOT MARINELLI Page [id number] at 1041 All edits/amendments must be made on the electronic document DICTATION DATE: 01/23/20 1041 TOP IRONER: GUSTAVO 01/23/20 1041 RPT#: [id number] DC DATE: STATUS: ADM IN [facility] [address] [place] [address] END OF REPORT
--- NOTE | 2020-01-23 10:55 | NUR ---
CALLED REPORT OVER TO [facility] SPOKE WITH [facility]. PT IS TO BE TRANPORTED VIA [facility] BACK TO FACILITY. NO CHANGES NOTED TO PT OVERALL CONDITION.
--- NOTE | 2020-01-23 11:00 | NUR ---
I have reviewed this patient and I concur with the Shift Assessment completed by the Licensed Practical Nurse today this shift.
--- NOTE | 2020-01-23 12:22 | NUR ---
CVL DC AT THIS TIME BY RN WITH TIP INTACT. DRESSING APPLIED WITH NO NOTED BLEEDING. IV ALSO DC AT THIS TIME.
--- NOTE | 2020-01-23 16:29 | MORECARE ---
CASE MANAGEMENT DISCHARGE SUMMARY PATIENT: CHITO MARINELLI UNIT: [id number] ADM DATE: 01/06/20 AGE: 64 : 59 SEX: M ROOM/BED: D.2103 AUTHOR: JUAN,DOC PHYSICIAN: REFERRING PHYSICIAN: PATRICIA SAMANIEGO MD DATE OF SERVICE: 01/23/20 Discharge Plan Patient Name: CHITO MARINELLI Facility: [facility]:[place] : 1955 Planned Disposition: Home with Hospice Anticipated Discharge Date: 01/23/20 Discharge Date: 01/23/2020 Expected LOS: 17 Initial Reviewer: [id number] Initial Review Date: 01/06/2020 Generated: 01/23/20 5:29 pm Comments DCP- Discharge Planning Updated by [email or web address]: Maren Mcclure on 01/23/20 7:[address] CM faxed the Hospice order to [facility], Attn: Freddie. DCP- Discharge Planning Updated by [email or web address]: Maren Mcclure on 01/22/20 4:[address] CM received an order for Hospice consult and return to [facility] ([phone]). Contacted Store Leader, Marley Mckay ([phone]), who states that they will accept patient back 01/22, to the [facility]. Patient will require ambulance transportation to the facility. CM contacted patient's 2nd oldest sister, Onelia Robison ([phone]) to discuss patient's snf goals of care. CM explained the benefits of Hospice/palliative care. Onelia states she will have to discuss the options with her sisters and brother, Lloyd. DCP- Discharge Planning Updated by [id number]: Maren Mcclure on 01/17/20 2:[address] CM contacted [facility] to determine the patients' bed status. Per the admissions nurse, the patient was in a manager terminal bed and it is still available for him, upon DC. DCP- Discharge Planning Updated by [id number]: Maren Mcclure on 01/11/20 9:[address] CM met with patient to discuss initial discharge planning. Patient is in agreement to proceed with the assessment. Patient reports that he lives at [facility] in a LT bed. Patient is alert/oriented. Stairs/steps: 0 PCP: Dr. Carlton. Pharmacy: [facility]. DME: [place] provides. Emergency contact:: Ana Lance (cousin) [phone].. Patient is in agreement to returning to the [place] at this time and feels safe returning to previous environment. Patient denies hospitalization within the past 30 days. 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 Transportation at time of discharge: [place] Van. Last DP export: 01/23/20 9:41 a Patient Name: CHITO MARINELLI Page [phone] at 0085 All edits/amendments must be made on the electronic document DICTATION DATE: 01/23/201628 PRIVATE ADVISOR: GUSTAVO 01/23/201628 RPT#: [id number] DC DATE:01/23/20 STATUS: DIS IN [facility] [address] [place] [address] END OF REPORT
--- NOTE | 2020-01-24 09:07 | MORECARE ---
CASE MANAGEMENT DISCHARGE SUMMARY PATIENT: CHITO MARINELLI UNIT: [id number] ADM DATE: 01/06/20 AGE: 64 : 59 SEX: M ROOM/BED: D.2103 AUTHOR: JUAN,DOC PHYSICIAN: REFERRING PHYSICIAN: PATRICIA SAMANIEGO MD DATE OF SERVICE: 01/24/20 Discharge Plan Patient Name: CHITO MARINELLI Facility: [facility]:[place] : 1955 Planned Disposition: Home with Hospice Anticipated Discharge Date: 01/23/20 Discharge Date: 01/23/2020 Expected LOS: 17 Initial Reviewer: [email or web address] Initial Review Date: 01/06/2020 Generated: 01/24/20 10:06 am Comments DCP- Discharge Planning Updated by [email or web address]: Maren Mcclure on 01/24/20 8:[address] Per Freddie, with [facility], the patient's sister Onelia Robison and her siblings are all in agreement for the patient to return to [facility] Hospice. The patient was transported via ambulance to the facility. DCP- Discharge Planning Updated by [email or web address]: Maren Mcclure on 01/23/20 7:[address] CM faxed the Hospice order to [facility], Attn: Freddie. DCP- Discharge Planning Updated by [email or web address]: Maren Mcclure on 01/22/20 4:[address] CM received an order for Hospice consult and return to [facility] ([phone]). Contacted Medical Staff Services Manager, Marley Mckay ([phone]), who states that they will accept patient back 01/22, to the [facility]. Patient will require ambulance transportation to the facility. CM contacted patient's 2nd oldest sister, Onelia Robison ([phone]) to discuss patient's usp goals of care. CM explained the benefits of Hospice/palliative care. Onelia states she will have to discuss the options with her sisters and brother, Lloyd. DCP- Discharge Planning Updated by [email or web address]: Maren Mcclure on 01/17/20 2:[address] CM contacted [facility] to determine the patients' bed status. Per the phlebotomy director, the patient was in a [employer]termaker continuous churn bed and it is still available for him, upon DC. DCP- Discharge Planning Updated by [email or web address]: Maren Mcclure on 01/11/20 9:[address] CM met with patient to discuss initial discharge planning. Patient is in agreement to proceed with the assessment. Patient reports that he lives at [facility] in a LT bed. Patient is alert/oriented. Stairs/steps: 0 PCP: Dr. Carlton. Pharmacy: [facility]. DME: [place] provides. Emergency contact:: Ana Lance (cousin) [phone].. Patient is in agreement to returning to the [place] at this time and feels safe returning to previous environment. Patient denies hospitalization within the past 30 days. Patient denies the use of community resources [email or web address]. Transportation at time of discharge: [place] Van. Last DP export: 01/23/20 3:29 p Patient Name: CHITO MARINELLI Page [id number] at 0907 All edits/amendments must be made on the electronic document DICTATION DATE: 01/24/20905 ARCHITECTURAL INTERN: GUSTVAO 01/24/20905 RPT#: [id number] DC DATE:01/23/20 STATUS: DIS IN [facility] [id number] [place] [address] END OF REPORT
== END 2020-01-23 14:58 | disposition home health service (06) | DRG 853 ==
LOC: D.ER 08:57 → D.M2 10:51 → D.ICU 10:51 → D.M2 01-08 15:41
PROVIDERS: Emergency Medicine; Family Medicine; Family Medicine Adult Medicine; Internal Medicine; Internal Medicine Nephrology; Surgery; ADMIT Family Medicine; ATTEND Family Medicine
PROC: 05HM33Z Insertion of Infusion Device into Right Internal Jugular Vein, Percutaneous Approach (ICD-10-PCS; 2020-01-06)
PROC: 0QB10ZZ Excision of Sacrum, Open Approach (ICD-10-PCS; principal; 2020-01-07 14:15)
PROC: 0TP98DZ Removal of Intraluminal Device from Ureter, Via Natural or Artificial Opening Endoscopic (ICD-10-PCS; 2020-01-18)
DX: A41.9 Sepsis, unspecified organism (principal); L89.154 Pressure ulcer of sacral region, stage 4; J18.9 Pneumonia, unspecified organism; R65.21 Severe sepsis with septic shock; N17.0 Acute kidney failure with tubular necrosis; J44.1 Chronic obstructive pulmonary disease with (acute) exacerbation; E87.2 Acidosis; N39.0 Urinary tract infection, site not specified; E11.21 Type 2 diabetes mellitus with diabetic nephropathy; E11.40 Type 2 diabetes mellitus with diabetic neuropathy, unspecified; Q05.9 Spina bifida, unspecified; J30.9 Allergic rhinitis, unspecified; F17.200 Nicotine dependence, unspecified, uncomplicated; E87.5 Hyperkalemia; N26.1 Atrophy of kidney (terminal); Q66.89 Other specified congenital deformities of feet; I95.9 Hypotension, unspecified; D64.9 Anemia, unspecified